=== PATIENT | male | born 1940 | race Caucasian/White ===

== ENCOUNTER → 2018-01-24 10:27 | Outpatient (CLI) | payer OTHER, SELFPAY ==
[2018-01-24 10:46] LABS: Add Manual Diff / Slide Review NO; Basophils Percent Auto 0.9 % (0-2); Eosinophils Percent Auto 4.3 % (2-4); Hematocrit 39.7 % (41-53); Hemoglobin 13.5 g/dL (13.5-17.5); Lymphocytes Percent Auto 22.9 % (25-40); Mean Corpuscular HGB Conc 34.1 % (30-36); Mean Corpuscular Hemoglobin 30.7 PG (26-34); Mean Corpuscular Volume 90.1 fL (80-100); Monocytes Percent Auto 6.7 % (3-14); Neutrophils Absolute Auto 6200 /uL (3000-5900); Neutrophils Percent Auto 65.2 % (50-75); Platelet Count 234 X10^3/uL (150-400); Red Cell Distribution Width 13.7 % (11.6-14.8); White Blood Cell Count 9.4 X10^3/uL (4.5-11.0)
[2018-01-24 11:05] LABS: Alanine Aminotransferase 21 IU/L (21-72); Albumin 3.9 g/dL (3.5-5.0); Albumin Globulin Ratio 1.5 (1.0-2.8); Alkaline Phosphatase 76 U/L (38-126); Aspartate Aminotransferase 26 IU/L (17-59); Bilirubin Total 0.5 mg/dL (0.2-1.3); Estimated Glomerular Filt Rate 45.5 mL/min (>60); Globulin 2.6 g/dL (1.7-4.1); Glucose 102 mg/dL (80-110); HEMOLYSIS < 15 (0-50); Potassium 4.8 mmol/L (3.4-5.1); Sodium 142 mmol/L (137-145); Total Protein 6.5 g/dL (6.3-8.2)
== END ==
PROVIDERS: Family Provider Internal Medicine; PCP Internal Medicine; Visit Provider Nurse Practitioner Gerontology
DX: C64.9 Malignant neoplasm of unspecified kidney, except renal pelvis (principal)
CPT/HCPCS: 80053; 85025

== ENCOUNTER → 2018-02-13 10:34 | Outpatient (CLI) | payer OTHER, SELFPAY ==
--- NOTE | 2018-02-13 10:36 | DI.US.S_ITS ---
PROCEDURE: US RENAL COMPLETE INDICATIONS: HISTORY RENAL CELL CANCER/RENAL MASS TECHNIQUE: Real-time scanning was performed of the kidneys and bladder, with image documentation. COMPARISON: [facility], CT, ABDOMEN W&WO CONTRAST, 03/13/2017, 8:05. [facility], CT, CHEST/ABD/PEL WITH CONTRAST, 12/14/2017, 11:12. FINDINGS: Kidneys: Kidneys are normal in size. Right kidney measures 12.7 cm long; left kidney is surgically absent. Right renal cortical thickness is 2.3 cm. Renal cortical echotexture is normal. No hydronephrosis or nephrolithiasis. No suspicious solid mass lesions. The several renal cortical cysts are present, simple in character, measuring up to 1.3 cm at the anterior cortex at 3.2 cm superior cortex seen on CT scanning Bladder: Pre-void bladder volume is 187 mL. Post-void residual is 0 mL. Pre-void images demonstrate no intraluminal masses or stones. On pre-void images, right but not the left ureteral jets are noted with color Doppler interrogation. (Of note, ureteral jets may not be detectable in up to 25% of cases due to insufficient differences in specific gravity between ureteral and bladder urine). Miscellaneous: No free pelvic fluid. IMPRESSION: Prior left nephrectomy, several scattered renal cortical cysts are seen on the right. No solid right-sided renal cortical mass is present. There is a hyperdense cyst at the posterior border of the right kidney cortex, located at approximately the junction of the middle and upper thirds, that has sonographic appearance of a cyst and therefore is consistent with a proteinaceous content within. Dictated by: Kingsley Teran M.D. on 02/13/2018 at 12:47 Approved by: Kingsley Teran M.D. on 02/13/2018 at 12:51
== END ==
PROVIDERS: Family Provider Internal Medicine; PCP Internal Medicine; Visit Provider Nurse Practitioner Gerontology
DX: N28.1 Cyst of kidney, acquired (principal); Z85.528 Personal history of other malignant neoplasm of kidney
CPT/HCPCS: 76770

== ENCOUNTER → 2018-04-07 12:24 | Outpatient (CLI) | payer OTHER, SELFPAY ==
[2018-04-07 13:28] LABS: Alanine Aminotransferase 21 IU/L (21-72); Albumin 3.9 g/dL (3.5-5.0); Albumin Globulin Ratio 1.6 (1.0-2.8); Alkaline Phosphatase 77 U/L (38-126); Aspartate Aminotransferase 27 IU/L (17-59); BUN Creatinine Ratio 13.8 (6-22); Bilirubin Total 0.5 mg/dL (0.2-1.3); Blood Urea Nitrogen 18 mg/dL (9-20); Calcium 9.1 mg/dL (8.4-10.2); Carbon Dioxide 24 mmol/L (22-32); Chloride 106 mmol/L (98-107); Estimated Glomerular Filt Rate 53.7 mL/min (>60); Globulin 2.4 g/dL (1.7-4.1); Glucose 96 mg/dL (80-110); HEMOLYSIS < 15 (0-50); Potassium 4.6 mmol/L (3.4-5.1); Sodium 139 mmol/L (137-145); Total Protein 6.3 g/dL (6.3-8.2)
[2018-04-07 13:59] LABS: Prostate Specific Antigen 0.584 ng/mL (0.10-4.00)
== END ==
PROVIDERS: Family Provider Internal Medicine; PCP Internal Medicine; Visit Provider Internal Medicine
DX: N40.1 Benign prostatic hyperplasia with lower urinary tract symptoms (principal); Z85.528 Personal history of other malignant neoplasm of kidney
CPT/HCPCS: 36415; 80053; 84153

== ENCOUNTER → 2018-04-10 10:52 | Outpatient (CLI) | payer OTHER, SELFPAY ==
--- NOTE | 2018-04-10 | DI.CT.S_ITS ---
PROCEDURE: CT CHEST ABD PEL W CON INDICATIONS: HISTORY OF RENAL CELL CARCINOMA TECHNIQUE: After the administration of intravenous contrast, 5 mm thick sections acquired from the lung apices to the symphysis. 5 mm coronal and sagittal reformats were performed, with additional 7 mm MIP reformats through the lungs. For radiation dose reduction, the following was used: automated exposure control, adjustment of mA and/or kV according to patient size. COMPARISON: Outside Facility, , CT ABDOMEN/PELVIS WITH CONTRAST, 11/15/2016, 13:56. [facility], CT, ABDOMEN W&WO CONTRAST, 03/13/2017, 8:05. [facility], CT, CHEST/ABD/PEL WITH CONTRAST, 07/19/2017, 9:34. [facility], US, US RENAL COMPLETE, 02/13/2018, 10:58. [facility], CT, CHEST/ABD/PEL WITH CONTRAST, 12/14/2017, 11:12. FINDINGS: Image quality: Excellent. CHEST: Lungs and pleura: No acute airspace opacities except for atelectatic changes. No pleural effusions or pneumothorax. Central and peripheral airways appear patent and normal in caliber. Mediastinum: Heart size is normal. Coronary artery calcifications. No pericardial effusion. No mediastinal or hilar adenopathy by size criteria. Thoracic aorta is aneurysmal in the ascending segment which measures 4.4 cm AP. The central pulmonary arteries are normal in size. Esophagus is normal in caliber. No hiatal hernia. Chest wall: No axillary or supraclavicular adenopathy by size criteria. Thyroid gland appears normal. ABDOMEN: Solid organs: Liver is normal in size and enhancement. Numerous hepatic cysts appear stable. Gallbladder shows no calcified stones. Biliary system is non dilated. Pancreas enhances normally. Spleen is normal in size and enhancement. No adrenal nodules. The left kidney is surgically absent. The right kidney again contains a 1.4 cm exophytic hyperdense cyst over the lateral mid pole. Additional simple renal cysts appear stable. A 4 mm calcification in the posterior lower pole and a 6 mm calcification in the anterior lower pole appear slightly larger. Peritoneum and bowel: Bowel loops demonstrate normal wall thickness and caliber. No free fluid or air. Nodes and vessels: No retroperitoneal or mesenteric adenopathy by size criteria. Aorta and inferior vena cava are normal in size. Miscellaneous: No ventral hernias. PELVIS: Genitourinary: Bladder wall thickness is mildly increased. Prostate is mildly enlarged and lobulated. Seminal vesicles are partially calcified. Miscellaneous: No inguinal hernias or adenopathy. Bones: No suspicious bony lesions. Multi-level degenerative disc disease. Sclerotic endplates L2-3 and L5-S1. No vertebral body compression fractures. IMPRESSION: 1. Status post left nephrectomy with no focal recurrence for adenopathy. 2. Multiple hepatic cysts appear stable. 3. Multiple right renal cysts including hyperdense cyst remain stable. Right nephrolithiasis. 4. Aneurysmal ascending aorta. Atherosclerosis. Dictated by: Michele Pina M.D. on 04/10/2018 at 12:47 Approved by: Michele Pina M.D. on 04/10/2018 at 13:05
== END ==
PROVIDERS: Family Provider Internal Medicine; PCP Internal Medicine; Visit Provider Urology
DX: N28.1 Cyst of kidney, acquired (principal); N20.0 Calculus of kidney; K76.89 Other specified diseases of liver; I71.2 Thoracic aortic aneurysm, without rupture; I70.90 Unspecified atherosclerosis; Z85.528 Personal history of other malignant neoplasm of kidney; Z90.5 Acquired absence of kidney
CPT/HCPCS: 71260; 74177; Q9967

== ENCOUNTER 2018-05-10 10:00 | Oncology outpatient (ONC) | payer OTHER, SELFPAY ==
[2018-01-31 15:36] VITALS: BP 150/88; PULSE 58; RESP 58; TEMP 36.2; O2SAT 18
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
[2018-05-10 10:14] VITALS: BP 135/79; PULSE 60; RESP 18; TEMP 36.8; O2SAT 98
[2018-05-10 10:19] LABS: Add Manual Diff / Slide Review NO; Basophils Percent Auto 0.8 % (0-2); Eosinophils Percent Auto 5.5 % (2-4); Hematocrit 41.2 % (41-53); Hemoglobin 13.7 g/dL (13.5-17.5); Mean Corpuscular HGB Conc 33.3 % (30-36); Mean Corpuscular Hemoglobin 30.9 PG (26-34); Monocytes Percent Auto 8.2 % (3-14); Neutrophils Absolute Auto 5300 /uL (3000-5900); Neutrophils Percent Auto 61.5 % (50-75); Platelet Count 245 X10^3/uL (150-400); Red Blood Cell Count 4.43 X10^6/uL (4.5-5.9); Red Cell Distribution Width 14.1 % (11.6-14.8); White Blood Cell Count 8.6 X10^3/uL (4.5-11.0)
[2018-05-10 10:25] LABS: Alanine Aminotransferase 19 IU/L (21-72); Albumin 3.9 g/dL (3.5-5.0); Albumin Globulin Ratio 1.5 (1.0-2.8); Alkaline Phosphatase 82 U/L (38-126); Aspartate Aminotransferase 23 IU/L (17-59); BUN Creatinine Ratio 12.9 (6-22); Bilirubin Total 0.5 mg/dL (0.2-1.3); Blood Urea Nitrogen 18 mg/dL (9-20); Calcium 8.9 mg/dL (8.4-10.2); Carbon Dioxide 27 mmol/L (22-32); Chloride 108 mmol/L (98-107); Estimated Glomerular Filt Rate 49.3 mL/min (>60); Globulin 2.6 g/dL (1.7-4.1); Glucose 110 mg/dL (80-110); HEMOLYSIS 20 (0-50); Potassium 5.2 mmol/L (3.4-5.1); Sodium 145 mmol/L (137-145); Total Protein 6.5 g/dL (6.3-8.2)
== END 2018-05-22 14:46 ==
PROVIDERS: Family Provider Internal Medicine; PCP Internal Medicine; Visit Provider Nurse Practitioner Gerontology
DX: C64.9 Malignant neoplasm of unspecified kidney, except renal pelvis (principal)
CPT/HCPCS: 36415; 80053; 85025; 99214

== ENCOUNTER → 2018-08-31 11:08 | Outpatient (CLI) | payer OTHER, SELFPAY ==
[2018-08-31 11:41] LABS: Add Manual Diff / Slide Review NO; Basophils Percent Auto 1.3 % (0-2); Eosinophils Percent Auto 5.2 % (2-4); Hematocrit 41.4 % (41-53); Hemoglobin 14.2 g/dL (13.5-17.5); Lymphocytes Percent Auto 28.1 % (25-40); Mean Corpuscular HGB Conc 34.3 % (30-36); Mean Corpuscular Hemoglobin 30.9 PG (26-34); Monocytes Percent Auto 7.4 % (3-14); Neutrophils Absolute Auto 4000 /uL (1500-7000); Platelet Count 245 X10^3/uL (150-400); Red Cell Distribution Width 14.1 % (11.6-14.8)
[2018-08-31 12:03] LABS: Alanine Aminotransferase 22 IU/L (21-72); Albumin 4.1 g/dL (3.5-5.0); Albumin Globulin Ratio 1.5 (1.0-2.8); Alkaline Phosphatase 72 U/L (38-126); Aspartate Aminotransferase 29 IU/L (17-59); BUN Creatinine Ratio 12.7 (6-22); Bilirubin Total 0.4 mg/dL (0.2-1.3); Blood Urea Nitrogen 19 mg/dL (9-20); Calcium 9.3 mg/dL (8.4-10.2); Carbon Dioxide 23 mmol/L (22-32); Chloride 107 mmol/L (98-107); Estimated Glomerular Filt Rate 45.4 mL/min (>60); Globulin 2.8 g/dL (1.7-4.1); Glucose 108 mg/dL (80-110); HEMOLYSIS 15 (0-50); Potassium 4.5 mmol/L (3.4-5.1); Sodium 142 mmol/L (137-145); Total Protein 6.9 g/dL (6.3-8.2)
--- NOTE | 2018-08-31 16:05 | PC.NURSE ---
labs stable, provider visit 3
== END ==
PROVIDERS: Family Provider Internal Medicine; PCP Internal Medicine; Visit Provider Nurse Practitioner Gerontology
DX: C64.9 Malignant neoplasm of unspecified kidney, except renal pelvis (principal)
CPT/HCPCS: 36415; 80053; 85025

== ENCOUNTER → 2018-09-03 10:37 | Outpatient (CLI) | payer OTHER, SELFPAY ==
--- NOTE | 2018-09-03 | DI.CT.S_ITS ---
PROCEDURE: CT CHEST ABD PEL W CON INDICATIONS: HISTORY OF RENAL CELL CARCINOMA TECHNIQUE: After the administration of oral and intravenous contrast, 5 mm thick sections acquired from the lung apices to the symphysis. 5 mm coronal and sagittal reformats were performed, with additional 7 mm coronal MIP reformats through the lungs. For radiation dose reduction, the following was used: automated exposure control, adjustment of mA and/or kV according to patient size. COMPARISON: [facility], CT, CT CHEST ABD PEL W CON, 04/10/2018, 11:51. FINDINGS: Image quality: Excellent. CHEST: Lungs and pleura: No acute airspace opacities. No pleural effusions or pneumothorax. Central and peripheral airways appear patent and normal in caliber. Mediastinum: Heart size is mildly enlarged. No pericardial effusion. No mediastinal or hilar adenopathy by size criteria. Ascending thoracic aortic aneurysm is again seen and measures up to 4.0 cm in largest AP diameter unchanged from previous study. Coronary calcifications are again seen. Esophagus is normal in caliber. There is a small height hernia. Chest wall: No axillary or supraclavicular adenopathy by size criteria. Thyroid gland is within normal limits. ABDOMEN: Solid organs: Liver is normal in size and enhancement. Numerous hepatic cysts are again seen and are unchanged in size and numbers. Gallbladder is within normal limits. Biliary system is non dilated. Pancreas enhances normally. Spleen is normal in size and enhancement. No adrenal nodules. Left kidney is surgically absent. Right kidney again contains 1.4 cm exophytic hyperdense cyst over lateral aspect of lower pole, unchanged in size and appearance from previous study. Additional simple appearing right renal cysts are again seen. Nonobstructing right renal calculi are again seen and unchanged. No hydronephrosis. No perinephric fluid collection. Peritoneum and bowel: Bowel loops demonstrate normal wall thickness and caliber. No free fluid or air. Sigmoid diverticulosis is seen, and no Nodes and vessels: No retroperitoneal or mesenteric adenopathy by size criteria. Aorta and inferior vena cava are normal in size. Miscellaneous: No ventral hernias. PELVIS: Genitourinary: Bladder wall thickness is normal. Miscellaneous: No inguinal hernias or adenopathy. Bones: No suspicious bony lesions. No vertebral body compression fractures. Degenerative disc disease through all thoracic and lumbar spine is seen. IMPRESSION: 1. No significant changes from previous study. Prior left nephrectomy with no evidence of local recurrence. 2. No adenopathy is seen in chest, abdomen or pelvis. 3. Bilateral lungs are clear. 4. Multiple hepatic cysts appear stable. Stable right renal cysts including hyperdense cyst in lower pole. Right nephrolithiasis. 5. Stable aneurysmal dilatation of ascending thoracic aorta. Dictated by: Humberto Garcia M.D. on 09/03/2018 at 14:05 Approved by: Humberto Garcia M.D. on 09/03/2018 at 15:13
== END ==
PROVIDERS: Family Provider Internal Medicine; PCP Internal Medicine; Referring Provider Nurse Practitioner Gerontology; Visit Provider Urology
DX: K76.89 Other specified diseases of liver (principal); N28.1 Cyst of kidney, acquired; N20.0 Calculus of kidney; I71.2 Thoracic aortic aneurysm, without rupture; Z85.528 Personal history of other malignant neoplasm of kidney
CPT/HCPCS: 71260; 74177; Q9967

== ENCOUNTER → 2018-12-14 11:19 | Outpatient (CLI) | payer OTHER, SELFPAY ==
[2018-12-14 11:51] LABS: Alanine Aminotransferase 22 IU/L (21-72); Albumin 4.2 g/dL (3.5-5.0); Albumin Globulin Ratio 1.6 (1.0-2.8); Alkaline Phosphatase 76 U/L (38-126); Aspartate Aminotransferase 27 IU/L (17-59); BUN Creatinine Ratio 14.6 (6-22); Bilirubin Total 0.4 mg/dL (0.2-1.3); Blood Urea Nitrogen 19 mg/dL (9-20); Calcium 9.2 mg/dL (8.4-10.2); Carbon Dioxide 25 mmol/L (22-32); Chloride 103 mmol/L (98-107); Estimated Glomerular Filt Rate 53.5 mL/min (>60); Globulin 2.6 g/dL (1.7-4.1); Glucose 95 mg/dL (80-110); HEMOLYSIS 15 (0-50); Potassium 4.7 mmol/L (3.4-5.1); Sodium 138 mmol/L (137-145); Total Protein 6.8 g/dL (6.3-8.2)
== END ==
PROVIDERS: Family Provider Internal Medicine; PCP Internal Medicine; Visit Provider Urology
DX: Z85.528 Personal history of other malignant neoplasm of kidney (principal)
CPT/HCPCS: 36415; 80053

== ENCOUNTER → 2018-12-17 09:53 | Outpatient (CLI) | payer OTHER, SELFPAY ==
--- NOTE | 2018-12-17 | DI.CT.S_ITS ---
PROCEDURE: CT CHEST ABD PEL W CON INDICATIONS: HISTORY OF RENAL CELL CARCINOMA/RENAL CYST TECHNIQUE: After the administration of oral and intravenous contrast, 5 mm thick sections acquired from the lung apices to the symphysis. 5 mm coronal and sagittal reformats were performed, with additional 7 mm coronal MIP reformats through the lungs. For radiation dose reduction, the following was used: automated exposure control, adjustment of mA and/or kV according to patient size. COMPARISON: [facility], CT, CT CHEST ABD PEL W CON, 09/03/2018, 11:18. FINDINGS: Image quality: Excellent. CHEST: Lungs and pleura: No acute airspace opacities. No pleural effusions or pneumothorax. Central and peripheral airways appear patent and normal in caliber. Mediastinum: Heart size is normal. Mild coronary artery calcification. No pericardial effusion. No mediastinal or hilar adenopathy by size criteria. Thoracic aorta measures 4.4 cm in AP diameter, mildly increased compared to the prior study. The pulmonary arteries are normal. Esophagus is normal in caliber. No hiatal hernia. Chest wall: No axillary or supraclavicular adenopathy by size criteria. Thyroid gland is normal. ABDOMEN: Solid organs: Liver is normal in size and enhancement. Innumerable cystic structures throughout the liver ranging in size from subcentimeter, to 5.9 cm. No new enhancing liver lesions. Gallbladder is decompressed, without stones. Biliary system is non dilated. Pancreas enhances normally. Spleen is normal in size and enhancement. No adrenal nodules. The left kidney is surgically absent. No residual or recurrent tissue in the left nephrectomy bed. Stable splenule medial and superior to the spleen. No retroperitoneal lymphadenopathy. The right kidney contains multiple small exophytic simple and hyperdense cysts. No hydronephrosis or nephrolithiasis. Peritoneum and bowel: Bowel loops demonstrate normal wall thickness and caliber. Sigmoid diverticulosis. Normal appendix. No free fluid or air. Nodes and vessels: No retroperitoneal or mesenteric adenopathy by size criteria. Aorta and inferior vena cava are normal in size. Miscellaneous: No ventral hernias. PELVIS: Genitourinary: Bladder wall thickness is normal. Prostate gland size at the upper limits of normal. Miscellaneous: No inguinal hernias or adenopathy. Bones: No suspicious bony lesions. Degenerative disc, endplate, and facet disease throughout the spine. No vertebral body compression fractures. IMPRESSION: 1. Post left nephrectomy without evidence of local residual or recurrent disease. 2. Stable hepatic cysts. 3. No evidence of metastatic disease in the chest, abdomen, pelvis, or osseous structures. 4. Slight increase in size of ascending thoracic aorta, now measuring 4.4 cm in AP diameter. Dictated by: Melissa Simpson M.D. on 12/17/2018 at 12:45 Approved by: Melissa Simpson M.D. on 12/17/2018 at 13:02
== END ==
PROVIDERS: Family Provider Internal Medicine; PCP Internal Medicine; Visit Provider Urology
DX: N28.1 Cyst of kidney, acquired (principal); K76.89 Other specified diseases of liver; I77.89 Other specified disorders of arteries and arterioles; Z85.528 Personal history of other malignant neoplasm of kidney
CPT/HCPCS: 71260; 74177; Q9967

== ENCOUNTER → 2019-07-25 10:45 | Outpatient (CLI) | payer OTHER, SELFPAY ==
--- NOTE | 2019-07-25 11:23 | DI.CT.S_ITS ---
PROCEDURE: CT CHEST ABD PEL W CON INDICATIONS: renal cell carcinoma TECHNIQUE: After the administration of oral and intravenous contrast, 5 mm thick sections acquired from the lung apices to the symphysis. 5 mm coronal and sagittal reformats were performed, with additional 7 mm coronal MIP reformats through the lungs. For radiation dose reduction, the following was used: automated exposure control, adjustment of mA and/or kV according to patient size. COMPARISON: [facility], CT, CHEST/ABD/PEL WITH CONTRAST, 12/14/2017, 11:12. [facility], CT, ABDOMEN W&WO CONTRAST, 03/13/2017, 8:05. [facility], CT, CT CHEST ABD PEL W CON, 12/17/2018, 10:57. [facility], CT, CT CHEST ABD PEL W CON, 09/03/2018, 11:18. FINDINGS: Image quality: Excellent. CHEST: Lungs and pleura: No acute airspace opacities. No pleural effusions or pneumothorax. Central and peripheral airways appear patent and normal in caliber. Mediastinum: Heart size is normal. No pericardial effusion. No mediastinal or hilar adenopathy by size criteria. Thoracic aorta and central pulmonary arteries are normal in size. Esophagus is normal in caliber. No hiatal hernia. Chest wall: No axillary or supraclavicular adenopathy by size criteria. Thyroid gland normal where well seen. ABDOMEN: Solid organs: Liver is normal in size and enhancement. Multiple scattered hepatic cysts are again noted, water density. Gallbladder appears normal but partially contracted. Biliary system is non dilated. Pancreas enhances normally. Spleen is normal in size and enhancement. No adrenal nodules. The left kidney is surgically absent, the right kidney demonstrates normal size and enhancement, without hydronephrosis or solid masses. An exophytic hyperdense small right posterior renal cortical cyst has been chronically present.. Peritoneum and bowel: Bowel loops demonstrate normal wall thickness and caliber. No free fluid or air. Nodes and vessels: No retroperitoneal or mesenteric adenopathy by size criteria. Aorta and inferior vena cava are normal in size. Miscellaneous: No ventral hernias. PELVIS: Genitourinary: Bladder wall thickness is normal. Miscellaneous: No inguinal hernias or adenopathy. Bones: No suspicious bony lesions. No vertebral body compression fractures. IMPRESSION: No evidence of metastatic disease after left nephrectomy. Exophytic hyperdense cyst again noted posterior border of the right kidney. Scattered water density hepatic cysts are again seen. Dictated by: Kingsley Teran M.D. on 07/25/2019 at 13:30 Approved by: Kingsley Teran M.D. on 07/25/2019 at 13:34
== END ==
PROVIDERS: PCP Internal Medicine; Visit Provider Internal Medicine Hematology & Oncology
DX: C64.9 Malignant neoplasm of unspecified kidney, except renal pelvis (principal); K76.89 Other specified diseases of liver; Z90.5 Acquired absence of kidney
CPT/HCPCS: 71260; 74177; Q9967

== ENCOUNTER 2020-07-06 13:12 | Emergency (ER) | payer OTHER, SELFPAY ==
[2020-07-06 13:20] VITALS: BP 145/85; PULSE 71; RESP 20; TEMP 36.7; O2SAT 97
--- NOTE | 2020-07-06 14:46 | DI.US.S_ITS ---
PROCEDURE: US SCROTUM INDICATIONS: SWELLING, REDNESS, DRAINAGE. TECHNIQUE: Real-time scanning was performed of the scrotum and testicles, with image documentation. Color and pulse Doppler interrogation was performed of both testicles. COMPARISON: None. FINDINGS: Right: Testicle is normal in size at 3.0 x 3.0 x 4.9 cm, and homogenous in echotexture. Epididymis is normal in overall size and morphology. There is a small 4 x 6 x 6 mm peritesticular cyst on the right likely originating from the mid epididymis there is a moderately large right-sided hydrocele measuring up to 4.3 x 3.2 x 8.2 cm. varicoceles. Overlying scrotal skin is mildly increased in thickness and mildly hyperemic. Left: Testicle is normal in size at 3.2 x 3.0 x 4.8 cm, and homogeneous in echotexture. Epididymis is normal in overall size and morphology. There is a moderately large left-sided hydrocele measuring up to 2.9 x 5.3 x 8.0 cm. No varicoceles. Overlying scrotal skin is normal in thickness. Doppler: Color and pulse Doppler demonstrate normal and symmetric arterial flow in both testicles. IMPRESSION: Bilateral large hydroceles are present. No sign of testicular infection within, but there is asymmetric hyperemia involving the right scrotal wall, without abscess formation. Mild cellulitis is the likely cause. No suspicion for underlying malignancy within the testicular parenchyma, or infected hydroceles bilaterally. Dictated by: Kingsley Teran M.D. on 07/06/2020 at 16:54 Approved by: Kingsley Teran M.D. on 07/06/2020 at 17:00
--- NOTE | 2020-07-06 14:48 | ED.MALEGU ---
HPI - Male Genitourinary <MELIDA Pereira - Last Filed: 07/06/20 23:17> General Chief complaint: Urogenital-Male Stated complaint: infection on scrotum Time Seen by Provider: 07/06/20 14:21 Source: patient Mode of arrival: Ambulatory Limitations: no limitations History of Present Illness HPI Narrative: This is a 80-year-old female, nonsmoker, who has medical history significant for hypertension, tumor in kidney and has 1 functioning kidney, hyperlipidemia, back pain presents to ED with significant other with chief complain of scrotum pain, swelling and inflammation which started 4 days ago. Patient reports has been draining purulent discharge since yesterday. Patient denies fever, chills, nausea or vomiting. Patient denies previous history of similar symptoms. Patient denies dysuria or frequency more than his usual from old man's problem and reports clear clear urine. Related Data Previous Rx's Medication Instructions Recorded sildenafil [Viagra] 0 PO SEE INSTRUCTIONS #15 09/21/12 atenolol 50 mg PO QDAY #90 tab 04/25/19 celecoxib 200 mg capsule 200 mg PO DAILY #90 cap 08/22/19 nabumetone 750 mg tablet 750 mg PO BID #180 tab 12/25/19 omeprazole 40 mg capsule,delayed 40 mg PO QDAY #90 cap 02/25/20 release simvastatin 80 mg tablet 40 mg PO DAILY #45 tab 02/25/20 diazepam 5 mg tablet 5 mg PO Q6HP #120 tab 04/30/20 hydrocodone 7.5 mg-acetaminophen 1 - 2 tab PO Q6H PRN #180 tab 07/03/20 325 mg tablet sulfamethoxazole 800 1 tab PO BID 7 Days #14 tab 07/13/20 mg-trimethoprim 160 mg tablet Allergies Allergy/AdvReac Type Severity Reaction Status Date / Time No Known Drug Allergies Allergy Unknown Verified 07/03/20 13:33 [NO KNOWN DRUG ALLERGIES] Review of Systems <MELIDA Pereira - Last Filed: 07/06/20 23:17> Review of Systems Narrative: General: Denies fever, chills, fatigue, malaise, sweats. HEENT: Denies sinus pain, ear pain, sore throat, difficulty swallowing, dizziness. Respiratory: Denies dyspnea, cough, wheezing, hemoptysis, sputum. Cardiovascular: Denies chest pain, palpitations, orthopnea, edema. Gastrointestinal: Denies nausea, vomiting, abdominal pain, diarrhea, constipation, melena. : See HPI Musculoskeletal: Denies weakness, joint pain or bony pain. Skin: Denies rash, skin lesions, or other. Neurologic: Denies weakness, headache, numbness, change in speech, confusion, seizures, incoordination. Psychiatric: No concerning psychosocial issues. 12-point review of systems is negative except for those stated above. 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) Essential hypertension (Chronic) H/O migraine (Chronic) Liver cyst (Chronic 08/21/17) Mixed hyperlipidemia (Chronic) Osteoarthritis (Chronic) Renal cell carcinoma (Chronic 04/18/17) Renal cyst (Chronic 08/21/17) Right hydrocele (Chronic 03/01/16) Surgical History History of nephrectomy (05/05/17) Social History marital status: number of children: 2 household members: spouse lives independently: Yes caregiver/support person: No housing: house pets and animals: No education level: college (3 years) occupational status: other (Retired) Previous occupational history: [employer]. [employer]. anabel/confucianism: None travel history: recent ([place]) and over 6 months ago ([place]) leisure activities: fishing, reading and other (Boat work) Smoking Status: Never smoker Tobacco: How many years used: 0 quit status: quit date established (Never Started) second hand exposure: No alcohol intake: current (Rarely) substance use type: does not use Smoking Status: Never smoker Exam <MELIDA Pereira - Last Filed: 07/06/20 23:17> Narrative Exam Narrative: GEN: Alert, oriented x 3, well appearing and nourished, and in no acute distress. Head: Normal cephalic, atraumatic. No scalp or temporal tenderness, palpable mass or rash. EYES: Pupils are equal, round, and reactive to light and accommodation. Extraocular muscles are intact bilaterally. There is no subconjunctival hemorrhage, exudate and sclera non-icteric. ENT: Hearing grossly intact. Nose without bleeding, purulent discharge or deviation. Facial sinuses nontender to palpate. Mucous membrane moist, no mucosal lesion. Throat without erythema, tonsillar hypertrophy or exudate. Uvula in midline, airway patent. Neck: Trachea in midline. No JVD, non-tender without lymphadenopathy. No masses or thyroid megaly. Supple, non-tender and no meningeal signs. CARDIAC: Normal regular rate and rhythm without murmurs, gallops, or rubs. No chest wall tenderness. No peripheral edema, cyanosis or pallor. Capillary refill is less than 2 seconds. RESPIRATORY: Lungs are clear to auscultate bilaterally. No cough, wheezes, rales, or rhonchi. No stridor, respiratory distress, increase work of breathing, or accessary muscle used. ABD: Abdomen soft, nontender and non-distended. No guarding or rebound tenderness to palpate. Bowel sounds are normal in all 4 quadrants. There is no palpable masses or organomegaly. EXT: Full painless ROM of all extremities with no loss of sensation, strength, effusion or edema. SKIN: Warm, dry, normal color for patient. No erythema, lesions or rash over visible areas. BACK: Nontender without deformity or crepitance. No flank tenderness. NEUROLOGICAL: Alert and oriented to place, time and person. Sensation and motor function intact bilaterally. No facial droops, dysphasia. PSYCHIATRIC: Good judgement and reason, without hallucinations, abnormal affect or abnormal behaviors during the examination. Patient is not suicidal. Initial Vital Signs Initial Vital Signs: Vital Signs Temperature 98.0 F 07/06/20 13:20 Pulse Rate 71 07/06/20 13:20 Respiratory Rate 20 07/06/20 13:20 Blood Pressure 145/85 H 07/06/20 13:20 Pulse Oximetry 97 07/06/20 13:20 General: No CVA tenderness External: edema, erythema, scrotal swelling and tenderness Penis: normal penis Scrotum: no ecchymosis, edematous, erythematous, scrotal swelling and other (Thick purulent discharge on external scrotum) Testes: enlarged, testicular swelling and testicular tenderness <Estela Wild DO - Last Filed: 07/15/20 07:19> Initial Vital Signs Initial Vital Signs: Vital Signs Temperature 98.0 F 07/06/20 13:20 Pulse Rate 71 07/06/20 13:20 Respiratory Rate 20 07/06/20 13:20 Blood Pressure 145/85 H 07/06/20 13:20 Pulse Oximetry 97 07/06/20 13:20 Scores <[facility] - Last Filed: 07/06/20 23:17> GCS Danelle coma scale eye opening: Spontaneous [place] coma scale verbal response: Orientated Danelle coma scale motor response: Obey commands [place] coma scale total score: 15 qSOFA Altered Mental Status (GCS <15): No Respiratory rate greater than/equal to 22: No Systolic blood pressure less than or equal to 100: No qSOFA Total: 0 0-1 Not High Risk 1-3 High risk Course <[facility] - Last Filed: 07/06/20 23:17> Orders Ordered: Discontinued Medications Trimethoprim/Sulfamethoxazole (Bactrim Ds) 1 tab PO NOW ONE Stop: 07/06/20 17:31 Last Admin: 07/06/20 17:34 Dose: 1 tab Documented by: SOPHIA Consultations Consultation #1: Spoke with Dr. Chau on the phone and discussed physical findings, lab tests and ultrasound findings. She recommended startin patient on Septra DS and to have him call the office to follow-up. Time: 17:43 Vital Signs Vital signs: Vital Signs - 8 hr 07/06/20 17:30 Pulse Rate 64 Respiratory Rate 16 Blood Pressure 132/81 Pulse Oximetry 95 <Estela Wild DO - Last Filed: 07/15/20 07:19> Orders Ordered: Discontinued Medications Trimethoprim/Sulfamethoxazole (Bactrim Ds) 1 tab PO NOW ONE Stop: 07/06/20 17:31 Last Admin: 07/06/20 17:34 Dose: 1 tab Documented by: SOPHIA Vital Signs Vital signs: Vital Signs - 8 hr 07/06/20 17:30 Pulse Rate 64 Respiratory Rate 16 Blood Pressure 132/81 Pulse Oximetry 95 MDM - Male Genitourinary <Sree FergusonMELIDA - Last Filed: 07/06/20 23:17> Differential Diagnosis Differential diagnosis: Likely urinary tract infection, epididymitis, prostatitis and other (hydrocele, scrotal infection, ) Medical Records Attestation: I reviewed the patient's medical records. Lab Data Attestation: I reviewed the patient's lab results. Result diagrams: 07/06/20 16:03 07/06/20 16:03 Labs: Lab Results 07/06/20 07/06/20 07/06/20 Range/Units 16:03 16:03 16:03 WBC 10.3 (4.5-11.0) X10^3/uL RBC 4.41 L (4.5-5.9) X10^6/uL Hgb 13.8 (13.5-17.5) g/dL Hct 41.4 (41-53) % MCV 93.9 (80-100) fL MCH 31.3 (26-34) PG MCHC 33.4 (30-36) % RDW 13.5 (11.6-14.8) % Plt Count 248 (150-400) X10^3/uL Neut % (Auto) 68.9 (50-75) % Lymph % (Auto) 19.9 L (25-40) % Bladen % (Auto) 6.4 (3-14) % Eos % (Auto) 3.8 (2-4) % Baso % (Auto) 1.0 (0-2) % Neut # (Auto) 7100 H (6224-2904) /uL Lymph # (Auto) 2000 (5936-4969) /uL Bladen # (Auto) 700 (0-900) /uL Eos # (Auto) 400 (0-450) /uL Baso # (Auto) 100 (0-100) /uL Sodium 141 (137-145) mmol/L Potassium 5.0 (3.4-5.1) mmol/L Chloride 108 H (98-107) mmol/L Carbon Dioxide 29 (22-32) mmol/L BUN 16 (9-20) mg/dL Creatinine 1.36 H (0.66-1.25) mg/dL Estimated GFR 50.5 L (>60) mL/min BUN/Creatinine Ratio 11.8 (6-22) Glucose 103 (80-110) mg/dL Lactate (0.7-2.1) mmol/L Calcium 9.3 (8.4-10.2) mg/dL Total Bilirubin 0.6 (0.2-1.3) mg/dL AST 40 (17-59) IU/L ALT 30 (<50) IU/L Alkaline Phosphatase 108 (38-126) U/L Total Protein 7.3 (6.3-8.2) g/dL Albumin 4.0 (3.5-5.0) g/dL Globulin 3.3 (1.7-4.1) g/dL Albumin/Globulin Ratio 1.2 (1.0-2.8) Procalcitonin < 0.05 (<0.5) ng/mL 07/06/20 Range/Units 16:03 WBC (4.5-11.0) X10^3/uL RBC (4.5-5.9) X10^6/uL Hgb (13.5-17.5) g/dL Hct (41-53) % MCV (80-100) fL MCH (26-34) PG MCHC (30-36) % RDW (11.6-14.8) % Plt Count (150-400) X10^3/uL Neut % (Auto) (50-75) % Lymph % (Auto) (25-40) % Bladen % (Auto) (3-14) % Eos % (Auto) (2-4) % Baso % (Auto) (0-2) % Neut # (Auto) (4646-4136) /uL Lymph # (Auto) (4827-0228) /uL Bladen # (Auto) (0-900) /uL Eos # (Auto) (0-450) /uL Baso # (Auto) (0-100) /uL Sodium (137-145) mmol/L Potassium (3.4-5.1) mmol/L Chloride (98-107) mmol/L Carbon Dioxide (22-32) mmol/L BUN (9-20) mg/dL Creatinine (0.66-1.25) mg/dL Estimated GFR (>60) mL/min BUN/Creatinine Ratio (6-22) Glucose (80-110) mg/dL Lactate 0.9 (0.7-2.1) mmol/L Calcium (8.4-10.2) mg/dL Total Bilirubin (0.2-1.3) mg/dL AST (17-59) IU/L ALT (<50) IU/L Alkaline Phosphatase (38-126) U/L Total Protein (6.3-8.2) g/dL Albumin (3.5-5.0) g/dL Globulin (1.7-4.1) g/dL Albumin/Globulin Ratio (1.0-2.8) Procalcitonin (<0.5) ng/mL Urine Dip Bedside Urine Glucose Negative Bedside Urine Bilirubin - Negative Bedside Urine Ketone - Negative Urine Specific [place] 1.015 Bedside Urine Occult Blood - Negative Bedside Urine pH 6.0 Bedside Urine Protein - Negative Bedside Urine Urobilinogen - Negative Bedside Urine Nitrite - Negative Bedside Urine Leukocytes - Negative Esterase Imaging Data US Scrotum: Radiologist's Impression: [address] [address] XRay Report Signed Patient: Maria R Galvez [facility]#: [id number] : 03/31/1975Acct:[id number] Age/Sex: 45 / FDate of Service: 07/06/20 Loc: ED Accession Number: [id number] Procedure: XR wrist LT min 3V Ordering Provider: Estela Wild D.O. PROCEDURE: XR WRIST LT MIN 3V INDICATIONS: fall, left hand /wrist pain w/ deformed 5th finger w/ lac TECHNIQUE: 4 views of the wrist were acquired. COMPARISON: None. FINDINGS: Bones: No fractures or dislocations. No suspicious bony lesions. Small chronic calcification projects adjacent to the distal tip of the ulnar styloid. Scaphoid view: Scaphoid appears intact. Scapholunate interval is maintained. Soft tissues: No suspicious soft tissue calcifications. IMPRESSION: Left wrist without acute fracture or dislocation. If there is persistent clinical concern for occult fracture given adequate mechanism of injury, consider repeat imaging in 10-14 days. Dictated by: Gadiel Jorgensen M.D. on 07/06/2020 at 12:27 Approved by: Gadiel Jorgensen M.D. on 07/06/2020 at 12:29 [facility] Narrative Medical decision making narrative: This is a 80-year-old pleasant male presents to ED with scrotal swelling, redness, mild warmth with scant amount of thick purulent discharge. It was unable to locate where the drain is is coming from. Patient reports pain increases with certain movements and rubbing on the scrotum. Patient does not endorse constitutional symptoms. Urine test does not indicate bladder infection. No leukocytosis. Negative for lactate or procalcitonin elevation. Mildly decreased kidney function test with creatinine level of 1.36 and estimated GFR of 50.5 with normal BUN. When it was compared, patient's kidney function is at his baseline. US on scrotum obtained and indicates normal bilateral testicular size with homogeneous echotexture. Normal epididymitis. Bilateral moderately large hydrocele left-sided measuring up to 2.9 x 5.3 x 8.0 cm and right side upto 4.3 x 3.2x 8.2 cm. Right side scrotal skin is mildly increased in thickness and hyper image indicating cellulitis. There is no signs of testicular infection without abscess formation. Dr. Lee consulted and recommended to start Septra DS and to follow-up at the clinic. Findings were discussed with patient and spouse and patient was medicated with 1st dose of Septra DS in ED and discharged to home with b.i.d. course for 7 days. Return precautions were discussed with patient and he verbalized understanding and agreement with the treatment plan. <Estela Wild, DO - Last Filed: 07/15/20 07:19> Lab Data Labs: Lab Results 07/06/20 07/06/20 07/06/20 Range/Units 16:03 16:03 16:03 WBC 10.3 (4.5-11.0) X10^3/uL RBC 4.41 L (4.5-5.9) X10^6/uL Hgb 13.8 (13.5-17.5) g/dL Hct 41.4 (41-53) % MCV 93.9 (80-100) fL MCH 31.3 (26-34) PG MCHC 33.4 (30-36) % RDW 13.5 (11.6-14.8) % Plt Count 248 (150-400) X10^3/uL Neut % (Auto) 68.9 (50-75) % Lymph % (Auto) 19.9 L (25-40) % Bl[place] % (Auto) 6.4 (3-14) % Eos % (Auto) 3.8 (2-4) % Baso % (Auto) 1.0 (0-2) % Neut # (Auto) 7100 H (7091-3463) /uL Lymph # (Auto) 2000 (5701-9325) /uL [place] # (Auto) 700 (0-900) /uL Eos # (Auto) 400 (0-450) /uL Baso # (Auto) 100 (0-100) /uL Sodium 141 (137-145) mmol/L Potassium 5.0 (3.4-5.1) mmol/L Chloride 108 H (98-107) mmol/L Carbon Dioxide 29 (22-32) mmol/L BUN 16 (9-20) mg/dL Creatinine 1.36 H (0.66-1.25) mg/dL Estimated GFR 50.5 L (>60) mL/min BUN/Creatinine Ratio 11.8 (6-22) Glucose 103 (80-110) mg/dL Lactate (0.7-2.1) mmol/L Calcium 9.3 (8.4-10.2) mg/dL Total Bilirubin 0.6 (0.2-1.3) mg/dL AST 40 (17-59) IU/L ALT 30 (<50) IU/L Alkaline Phosphatase 108 (38-126) U/L Total Protein 7.3 (6.3-8.2) g/dL Albumin 4.0 (3.5-5.0) g/dL Globulin 3.3 (1.7-4.1) g/dL Albumin/Globulin Ratio 1.2 (1.0-2.8) Procalcitonin < 0.05 (<0.5) ng/mL 07/06/20 Range/Units 16:03 WBC (4.5-11.0) X10^3/uL RBC (4.5-5.9) X10^6/uL Hgb (13.5-17.5) g/dL Hct (41-53) % MCV (80-100) fL MCH (26-34) PG MCHC (30-36) % RDW (11.6-14.8) % Plt Count (150-400) X10^3/uL Neut % (Auto) (50-75) % Lymph % (Auto) (25-40) % [place] % (Auto) (3-14) % Eos % (Auto) (2-4) % Baso % (Auto) (0-2) % Neut # (Auto) (4802-6763) /uL Lymph # (Auto) (2258-2713) /uL Bladen # (Auto) (0-900) /uL Eos # (Auto) (0-450) /uL Baso # (Auto) (0-100) /uL Sodium (137-145) mmol/L Potassium (3.4-5.1) mmol/L Chloride (98-107) mmol/L Carbon Dioxide (22-32) mmol/L BUN (9-20) mg/dL Creatinine (0.66-1.25) mg/dL Estimated GFR (>60) mL/min BUN/Creatinine Ratio (6-22) Glucose (80-110) mg/dL Lactate 0.9 (0.7-2.1) mmol/L Calcium (8.4-10.2) mg/dL Total Bilirubin (0.2-1.3) mg/dL AST (17-59) IU/L ALT (<50) IU/L Alkaline Phosphatase (38-126) U/L Total Protein (6.3-8.2) g/dL Albumin (3.5-5.0) g/dL Globulin (1.7-4.1) g/dL Albumin/Globulin Ratio (1.0-2.8) Procalcitonin (<0.5) ng/mL Urine Dip Bedside Urine Glucose Negative Bedside Urine Bilirubin - Negative Bedside Urine Ketone - Negative Urine Specific [place] 1.015 Bedside Urine Occult Blood - Negative Bedside Urine pH 6.0 Bedside Urine Protein - Negative Bedside Urine Urobilinogen - Negative Bedside Urine Nitrite - Negative Bedside Urine Leukocytes - Negative Esterase Discharge Plan Departure Patient Disposition: Home Clinical Impression: Cellulitis, scrotum Hydrocele Qualifiers: Hydrocele type: unspecified Qualified Code(s): N43.3 - Hydrocele, unspecified Discharge Date/Time: 07/06/20 17:56 Instructions: DI for Cellulitis -- Adult, DI for Hydrocele-Adult Activity Restrictions/Additional Instructions: You have been diagnosed with [bilateral hydrocele and scortal cellulitis based on ultrasound test. Lab tests are assuring. No signs of UTI. I spoke with Dr. Hastings's associate Dr. Lee and she instructed to call the office tomorrow morning to follow-up the office.]. What to do: *Take your medications as directed. Please start Bactrim DS twice a day for next 7 days. First dose has been provided today in ED. you can take [id number] Tylenol and or Motrin as needed for discomfort. *Follow up with your Dr. Arriola office in 2-3 days, call for an appointment. Let them know you were seen in the ED and that we asked you to be seen in follow up. *Return to ED if you have any new, worsening, or concerning symptoms, such as [chest pain, breathing difficulty, unable to tolerate fluids, fever, worsening pain or any acute concerns]. Prescriptions: No Action sildenafil [Viagra] 100 MG tablet 0 PO SEE INSTRUCTIONS Qty: 15 RF: 11 atenolol 50 mg tablet 50 mg PO QDAY Qty: 90 RF: 3 nabumetone 750 mg tablet 750 mg PO BID Qty: 180 RF: 3 omeprazole 40 mg capsule,delayed release(DR/EC) 40 mg PO QDAY Qty: 90 RF: 3 simvastatin 80 mg tablet 40 mg PO DAILY Qty: 45 RF: 3 diazepam [Valium] 5 mg tablet 5 mg PO Q6HP Qty: 120 RF: 0 sulfamethoxazole-trimethoprim [Bactrim DS] 800-160 mg tablet 1 tab PO BID 7 Days Qty: 14 RF: 0 celecoxib 200 mg capsule 200 mg PO DAILY Qty: 90 RF: 0 hydrocodone-acetaminophen 7.5-325 mg tablet 1 - 2 tab PO Q6H PRN (Reason: pain) Qty: 180 RF: 0 Referrals: Edgardo Hastings MD [Non-Staff] - Joe Pierre MD [Primary Care Provider] - <Estela Wild DO - Last Filed: 07/15/20 07:19> Cosign ED Attending Cosignature Attestation: I was immediately available in the department for consultation. This documentation has been reviewed. Supervised by Estela Wild DO
[2020-07-06 16:13] LABS: Add Manual Diff / Slide Review NO; Basophils Absolute Auto 100 /uL (0-100); Eosinophils Absolute Auto 400 /uL (0-450); Eosinophils Percent Auto 3.8 % (2-4); Hematocrit 41.4 % (41-53); Hemoglobin 13.8 g/dL (13.5-17.5); Lymphocytes Absolute Auto 2000 /uL (1100-4500); Lymphocytes Percent Auto 19.9 % (25-40); Mean Corpuscular HGB Conc 33.4 % (30-36); Mean Corpuscular Hemoglobin 31.3 PG (26-34); Mean Corpuscular Volume 93.9 fL (80-100); Monocytes Absolute Auto 700 /uL (0-900); Monocytes Percent Auto 6.4 % (3-14); Neutrophils Absolute Auto 7100 /uL (1500-7000); Neutrophils Percent Auto 68.9 % (50-75); Platelet Count 248 X10^3/uL (150-400); Red Blood Cell Count 4.41 X10^6/uL (4.5-5.9); Red Cell Distribution Width 13.5 % (11.6-14.8); White Blood Cell Count 10.3 X10^3/uL (4.5-11.0)
[2020-07-06 16:34] LABS: Lactate (Lactic Acid) 0.9 mmol/L (0.7-2.1)
[2020-07-06 16:35] LABS: Alanine Aminotransferase 30 IU/L (<50); Albumin Globulin Ratio 1.2 (1.0-2.8); Alkaline Phosphatase 108 U/L (38-126); Aspartate Aminotransferase 40 IU/L (17-59); BUN Creatinine Ratio 11.8 (6-22); Bilirubin Total 0.6 mg/dL (0.2-1.3); Blood Urea Nitrogen 16 mg/dL (9-20); Calcium 9.3 mg/dL (8.4-10.2); Carbon Dioxide 29 mmol/L (22-32); Chloride 108 mmol/L (98-107); Estimated Glomerular Filt Rate 50.5 mL/min (>60); Globulin 3.3 g/dL (1.7-4.1); Glucose 103 mg/dL (80-110); HEMOLYSIS 17 (0-50); Sodium 141 mmol/L (137-145); Total Protein 7.3 g/dL (6.3-8.2)
[2020-07-06 16:56] LABS: Procalcitonin < 0.05 ng/mL (<0.5)
[2020-07-06 17:30] VITALS: BP 132/81; PULSE 64; RESP 16; O2SAT 95
[2020-07-06] MEDS: TRIMETH/SULFA 160/800 (DS) TABLET 1 TAB PO (17:34)
== END 2020-07-06 17:56 | disposition home or self-care (01) ==
PROVIDERS: Emergency Provider Nurse Practitioner Family; PCP Internal Medicine
DX: N49.2 Inflammatory disorders of scrotum (principal); N43.3 Hydrocele, unspecified
CPT/HCPCS: 76870; 80053; 81003; 83605; 84145; 85025; 87070; 87075; 87077; 87186; 87205; 99284

== ENCOUNTER → 2020-07-09 09:47 | Outpatient (CLI) | payer OTHER, SELFPAY ==
--- NOTE | 2020-07-09 11:31 | DI.CT.S_ITS ---
PROCEDURE: CT CHEST ABD PEL WO CON INDICATIONS: kidney cancer TECHNIQUE: After the administration of oral contrast, 5 mm thick sections acquired from the lung apices to the symphysis pubis. 5 mm thick coronal and sagittal reformats acquired, with additional 7 mm coronal MIP reformats through the lungs. For radiation dose reduction, the following was used: automated exposure control, adjustment of mA and/or kV according to patient size. COMPARISON: [facility], CT, CT CHEST ABD PEL W CON, 07/25/2019, 11:48. [facility], CT, CT CHEST ABD PEL W CON, 12/17/2018, 10:57. [facility], CT, CT CHEST ABD PEL W CON, 09/03/2018, 11:18. [facility], CT, CT CHEST ABD PEL W CON, 04/10/2018, 11:51. FINDINGS: Image quality: Excellent. CHEST: Lungs and pleura: Bibasilar scars and atelectasis. No acute pulmonary opacities. No pleural effusions or pneumothorax. Central and peripheral airways are patent are normal in caliber. Mediastinum: Heart size is normal. No pericardial effusion. There is moderate coronary artery calcification. No mediastinal adenopathy by CT size criteria. Thoracic aorta and central pulmonary arteries are normal in size. Esophagus is normal in caliber. No hiatal hernia. Chest wall: No axillary or supraclavicular adenopathy by size criteria. Thyroid gland is normal. ABDOMEN: Solid organs: Liver is normal in size. There are multiple hepatic hypodensities, compatible with hepatic cyst. Gallbladder is normal. Pancreas is normal in contours. Spleen is normal in size. No adrenal nodules. Left kidney is surgically absent. There are multiple exophytic cortical nodules, most likely renal cysts, including a hyperdense cyst. These nodules are unchanged in size. Peritoneum and bowel: Small and large bowel loops are normal in caliber and wall thickness. No free fluid or air. Nodes and vessels: No retroperitoneal or mesenteric adenopathy by size criteria. Aorta and inferior vena cava are normal in size. Miscellaneous: No ventral hernias. PELVIS: Genitourinary: Bladder wall thickness is normal. Miscellaneous: No inguinal hernias or adenopathy. There is a left hydrocele. Bones: No suspicious bony lesions. No vertebral body compression fractures. Scoliosis and severe degenerative changes in thoracic and lumbar spine. IMPRESSION: 1. Suboptimal cancer evaluation due to lack of IV contrast. 2. Left nephrectomy. No definitive findings to suggest recurrent neoplasm. 3. Multiple exophytic nodules in right kidney are most likely cysts. 4. Multiple hepatic cysts. Dictated by: Austin Turner M.D. on 07/09/2020 at 16:33 Approved by: Austin Turner M.D. on 07/09/2020 at 17:31
== END ==
PROVIDERS: PCP Internal Medicine; Referring Provider Internal Medicine Hematology & Oncology; Visit Provider Internal Medicine Hematology & Oncology
DX: C64.9 Malignant neoplasm of unspecified kidney, except renal pelvis (principal); N28.9 Disorder of kidney and ureter, unspecified; K76.89 Other specified diseases of liver; Z90.5 Acquired absence of kidney
CPT/HCPCS: 71250; 74176

== ENCOUNTER 2021-03-09 09:50 | Emergency (ER) | payer OTHER, SELFPAY ==
[2021-03-09 10:18] VITALS: BP 128/79; PULSE 60; RESP 14; TEMP 36.3; O2SAT 100
--- NOTE | 2021-03-09 10:22 | DI.RAD.S_ITS ---
PROCEDURE: XR KNEE RT 3V INDICATIONS: right knee pain, felt pop. TECHNIQUE: 3 views of the knee were acquired. COMPARISON: [facility] [place], [place], XR KNEE 4+ VIEWS RIGHT, 02/10/2021, 10:18. FINDINGS: Bones: No fractures or dislocations. No suspicious bony lesions. There is moderate to severe medial and patellofemoral as well as minimal lateral compartment narrowing. Chondrocalcinosis is present. Severe periarticular osteophytes are present. No gross erosions. Appearance is relatively stable compared to 02/10/2021. Soft tissues: Moderate joint effusion. No suspicious soft tissue calcifications. 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 Dictated by: Sadia Noguera M.D. on 03/09/2021 at 11:25 Approved by: Sadia Noguera M.D. on 03/09/2021 at 11:27
--- NOTE | 2021-03-09 13:37 | ED.LOWEXIN ---
HPI - Extremity Injury (Lower) <Estela Wild, DO - Last Filed: 03/11/21 20:21> General Chief Complaint: Extremity Injury, Lower Stated Complaint: popped something in right knee yesterday Time Seen by Provider: 03/09/21 13:36 Source: patient Mode of arrival: Wheelchair Limitations: no limitations History of Present Illness HPI Narrative: 80-year-old male nonsmoker with history of hypertension presents with a chief complaint of any injury [place] He states that he was walking when his heel slipped a bit and he felt a pop. Patient is able to partially weight bear, he denies any numbness, tingling. No direct fall or trauma. Patient took [place] about 4 hours prior to arrival. Patient history of hypertension, renal cell carcinoma with nephrectomy, hyperlipidemia, and chronic back pain. Related Data Home Medications Medication Instructions Recorded Confirmed Vitamin D3 1,000 unit DAILY 07/23/20 07/23/20 ascorbic acid (vitamin C) 500 mg 500 mg DAILY 07/23/20 07/23/20 tablet (Vitamin C) zinc 50 mg capsule 50 mg PO DAILY 07/23/20 07/23/20 Previous Rx's Medication Instructions Recorded sildenafil 100 mg tablet (Viagra) 0 PO SEE INSTRUCTIONS #15 09/21/12 celecoxib 200 mg capsule 200 mg PO DAILY #90 cap 08/22/19 omeprazole 40 mg capsule,delayed 40 mg PO QDAY #90 cap 02/25/20 release simvastatin 80 mg tablet 40 mg PO DAILY #45 tab 02/25/20 atenolol 50 mg tablet 50 mg PO QDAY #90 tab 08/10/20 diazepam 5 mg tablet (Valium) 5 mg PO Q6HP #120 tab 09/29/20 nabumetone 750 mg tablet 750 mg PO BID #180 tab 12/29/20 hydrocodone 7.5 mg-acetaminophen 1 - 2 tab PO Q6H PRN #180 tab 03/10/21 325 mg tablet Allergies Allergy/AdvReac Type Severity Reaction Status Date / Time No Known Drug Allergies Allergy Unknown Verified 03/09/21 10:22 [NO KNOWN DRUG ALLERGIES] <Jaime Qureshi DO - Last Filed: 03/16/21 01:41> History of Present Illness HPI Narrative: 80-year-old male nonsmoker with history of hypertension presents with a chief complaint of any injury [place] He states that he was walking when his heel slipped a bit and he felt Review of Systems <Estela Wild DO - Last Filed: 03/11/21 20:21> Review of Systems ROS Unobtainable: All systems reviewed & are unremarkable except as noted in HPI and below Patient History <Estela Wild DO - Last Filed: 03/11/21 20:21> Medical History (Updated 03/09/21 @ 16:31 by Estela Wild DO) Ascending aortic aneurysm Cancer of kidney Cervical spine disease Dorsalgia (04/19/11) Essential hypertension H/O migraine Liver cyst (08/21/17) Mixed hyperlipidemia Osteoarthritis Renal cell carcinoma (04/18/17) Renal cyst (08/21/17) Right hydrocele (03/01/16) Surgical History History of nephrectomy (05/05/17) Social History marital status: number of children: 2 household members: spouse lives independently: Yes caregiver/support person: No housing: house pets and animals: No education level: college (3 years) occupational status: other (Retired) 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 anabel/scientology: None travel history: recent ([place]) and over 6 months ago ([place]) leisure activities: fishing, reading and other (Boat work) Smoking Status: Never smoker Tobacco: How many years used: 0 quit status: quit date established (Never Started) second hand exposure: No alcohol intake: current (Rarely) substance use type: does not use Smoking Status: Never smoker alcohol intake frequency: a few times a month Substance Use Type: does not use Exam <Estela Wild DO - Last Filed: 03/11/21 20:21> Narrative Exam Narrative: GENERAL: Alert and oriented x three, elderly male in mild distress patient is seated in recliner. HEENT: Head normocephalic, atraumatic, EOMI, pupils reactive, face symmetric, moist mucous membranes NECK: Supple, full range of motion CARDIOVASCULAR: Regular rate and rhythm without murmurs, rubs or gallops. RESPIRATORY: Breath sounds equal bilaterally, no wheezes rales or rhonchi. ABDOMEN: Soft, nontender. Normoactive bowel sounds all 4 quadrants. No guarding or rebound, rigidity, no mass EXTREMITIES: Normal range of motion, no clubbing. Patient has tenderness over the tibia. Patient has negative joint laxity testing. Neurovascularly intact. Cap refill less than 2 seconds. 2+ pulse. NEUROLOGICAL: Cranial nerves II through XII grossly intact. Moving all extremities SKIN: Warm, dry, no petechiae, no rashes or lesions. Initial Vital Signs Initial Vital Signs: Vital Signs Temperature 97.4 F L 03/09/21 10:18 Pulse Rate 60 03/09/21 10:18 Respiratory Rate 14 03/09/21 10:18 Blood Pressure 128/79 03/09/21 10:18 Pulse Oximetry 100 03/09/21 10:18 <Jaime Qureshi DO - Last Filed: 03/16/21 01:41> Initial Vital Signs Initial Vital Signs: Vital Signs Temperature 97.4 F L 03/09/21 10:18 Pulse Rate 60 03/09/21 10:18 Respiratory Rate 14 03/09/21 10:18 Blood Pressure 128/79 03/09/21 10:18 Pulse Oximetry 100 03/09/21 10:18 Course <Estela Wild, DO - Last Filed: 03/11/21 20:21> Orders Ordered: ED Orders 03/09/21 10:22 XR knee RT 3V Stat 03/09/21 13:58 CT LE RT wo con Stat Consultations Consultation #1: Dr. Suresh, reviewed films. Plan for outpatient follow-up with Orthopedic surgery, possible MRI in the future. Weight bearing as tolerated. Knee immobilizer. Patient to contact orthopedics for follow up. Vital Signs Vital signs: Vital Signs - 8 hr 03/09/21 10:18 03/09/21 13:54 Temperature 97.4 F L Pulse Rate 60 51 L Respiratory Rate 14 Blood Pressure 128/79 149/83 H Pulse Oximetry 100 97 <Jaime Qureshi DO - Last Filed: 03/16/21 01:41> Orders Ordered: ED Orders 03/09/21 10:22 XR knee RT 3V Stat 03/09/21 13:58 CT LE RT wo con Stat Vital Signs Vital signs: Vital Signs - 8 hr 03/09/21 10:18 03/09/21 13:54 Temperature 97.4 F L Pulse Rate 60 51 L Respiratory Rate 14 Blood Pressure 128/79 149/83 H Pulse Oximetry 100 97 MDM - Extremity Injury (Lower) <Estela Wild DO - Last Filed: 03/11/21 20:21> Imaging Data Extremity x-ray #1: Radiologist's Impression: [address] [id number] ReportSigned Patient: Carlos Villagomez AM[facility]#: [id number]: [id number]/Sex: 80 / MDate of Service: 03/09/21Loc: EDAccession Number: [id number] Procedure: XR knee RT 3V Ordering Provider: Estela Widl D.O. PROCEDURE: XR KNEE RT 3V INDICATIONS: right knee pain, felt pop. TECHNIQUE: 3 views of the knee were acquired. [facility]+ VIEWS RIGHT, 02/10/2021, 10:18. FINDINGS: Bones: No fractures or dislocations. No suspicious bony lesions. There is moderate to severe medial and patellofemoral as well as minimal lateral compartment narrowing. Chondrocalcinosis is present. Severe periarticular osteophytes are present. No gross erosions. Appearance is relatively stable compared to 02/10/2021. Soft tissues: Moderate joint effusion. No suspicious soft tissue calcifications. 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 Dictated by: Sadia Noguera M.D. on 03/09/2021 at 11:25 Approved by: Sadia Noguera M.D. on 03/09/2021 at 11:27 Discharge Plan Departure Patient Disposition: Home Clinical Impression: Injury of knee, Joint effusion Activity Restrictions/Additional Instructions: Follow up with Orthopedic surgery in the next 7-10 days. Call for an appointment. Your imaging including a CT today shows a fracture of your lateral tibial osteophyte. The tibia itself appears intact. There is a large effusion in the joint which is also likely causing pain. You have significant arthritis within the joint of your knee. You may need to follow-up with orthopedic surgery they may evaluate with MRI in the future to check for ligamentous changes. Use walker with toe-touch weight-bearing until you follow-up with orthopedic surgery or if her symptoms completely resolved. Wear knee immobilizer while walking. You may remove at home while resting. You may take home pain medication as prescribed. Splint Care: Keep splint clean and dry. Elevated affected body part to decrease swelling. OK to use ice pack on the affected body part. Use for 15-20 minutes each time, for 5-6x per day. If you develop worsening pain, numbness, tingling, discoloration of the affected body part, loosen knee immobilizer, and either see your doctor for an urgent re-assessment, or return to the Emergency Department. Return to the Emergency Department for any new or worsening symptoms. Prescriptions: No Action sildenafil [Viagra] 100 MG tablet 0 PO SEE INSTRUCTIONS Qty: 15 RF: 11 omeprazole 40 mg capsule,delayed release(DR/EC) 40 mg PO QDAY Qty: 90 RF: 3 simvastatin 80 mg tablet 40 mg PO DAILY Qty: 45 RF: 3 atenolol 50 mg tablet 50 mg PO QDAY Qty: 90 RF: 3 diazepam [Valium] 5 mg tablet 5 mg PO Q6HP Qty: 120 RF: 0 nabumetone 750 mg tablet 750 mg PO BID Qty: 180 RF: 3 hydrocodone-acetaminophen 7.5-325 mg tablet 1 - 2 tab PO Q6H PRN (Reason: pain) Qty: 180 RF: 0 celecoxib 200 mg capsule 200 mg PO DAILY Qty: 90 RF: 0 ascorbic acid (vitamin C) [Vitamin C] 500 mg Tablet 500 mg DAILY RF: 0 zinc 50 mg Capsule 50 mg PO DAILY RF: 0 Vitamin D3 1,000 units 1,000 unit DAILY RF: 0 Referrals: Joe Pierre MD [Primary Care Provider] - Gi Suresh MD [Physician] -
[2021-03-09 13:54] VITALS: BP 149/83; PULSE 51; O2SAT 97
--- NOTE | 2021-03-09 13:58 | DI.CT.S_ITS ---
PROCEDURE: CT LE RT WO CON INDICATIONS: pain, swelling TECHNIQUE: Noncontrast 1-1.5 mm axial sections acquired from the mid-patella to the proximal tibia, with coronal and sagittal reformats. COMPARISON: None. FINDINGS: Image quality: Excellent. Bones: There is a nondisplaced fracture through a medial tibial osteophyte. The tibial plateau itself appears intact. There is a partially calcified medial meniscus present with severe medial and lateral compartmental joint space narrowing and subchondral sclerosis. The anterior and posterior tibial spines appear intact although remodeled. The separate anterior and posterior cruciate ligaments are not visualized and likely chronically injured/disorganized. Medial and lateral femoral condyles are intact. Severe patellofemoral joint space narrowing with marginal osteophytes and calcification of the lateral patellar ligaments noted. Soft tissues: Popliteal cyst noted measuring 3.4 x 2.4 cm. A 1 x 1.6 cm collection of loose bodies noted in the posterior aspect of the joint space. There is a large joint effusion present. Diffuse atherosclerotic vascular calcification noted. Superior patellar enthesophyte and/or calcification in the patellar superior ligament noted as well. IMPRESSION: 1. Nondisplaced fracture through a lateral tibial osteophyte. Tibial plateau intact. Large associated joint effusion. Consider follow-up MRI to evaluate ligamental integrity 2. Advanced degenerative osteoarthritis with severe joint space narrowing, subchondral sclerosis, and probable posterior loose bodies. 3. Meniscal chondrocalcinosis, vascular calcific atherosclerosis, and popliteal cyst. Dictated by: Serjio Rios M.D. on 03/09/2021 at 14:05 Approved by: Serjio Rios M.D. on 03/09/2021 at 14:33
[2021-03-09 17:00] VITALS: BP 151/85; PULSE 97; RESP 16; O2SAT 99
== END 2021-03-09 17:00 | disposition home or self-care (01) ==
PROVIDERS: Emergency Provider Emergency Medicine; PCP Internal Medicine
DX: M25.461 Effusion, right knee (principal); S89.91XA Unspecified injury of right lower leg, initial encounter
CPT/HCPCS: 73562; 73700; 99283; 99284

== ENCOUNTER → 2021-04-02 15:28 | Outpatient (CLI) | payer OTHER, SELFPAY ==
[2021-04-02 16:59] LABS: Alanine Aminotransferase 21 IU/L (<50); Albumin 3.8 g/dL (3.5-5.0); Albumin Globulin Ratio 1.5 (1.0-2.8); Alkaline Phosphatase 72 U/L (38-126); Aspartate Aminotransferase 36 IU/L (17-59); BUN Creatinine Ratio 11.8 (6-22); Bilirubin Total 0.3 mg/dL (0.2-1.3); Blood Urea Nitrogen 15 mg/dL (9-20); Calcium 9.1 mg/dL (8.4-10.2); Carbon Dioxide 25 mmol/L (22-32); Chloride 108 mmol/L (98-107); Estimated Glomerular Filt Rate 54.7 mL/min (>60); Globulin 2.6 g/dL (1.7-4.1); Glucose 91 mg/dL (80-110); HEMOLYSIS < 15 (0-50); Sodium 138 mmol/L (137-145); Total Protein 6.4 g/dL (6.3-8.2)
== END ==
PROVIDERS: PCP Internal Medicine; Referring Provider Internal Medicine; Visit Provider Internal Medicine
DX: C64.9 Malignant neoplasm of unspecified kidney, except renal pelvis (principal); E78.2 Mixed hyperlipidemia; I10 Essential (primary) hypertension
CPT/HCPCS: 36415; 80053

== ENCOUNTER → 2021-08-04 10:23 | Outpatient (CLI) | payer OTHER, SELFPAY ==
--- NOTE | 2021-08-04 11:05 | DI.CT.S_ITS ---
PROCEDURE: CT CHEST ABD PEL WO CON INDICATIONS: renal cell carcinoma TECHNIQUE: After the administration of oral contrast, 5 mm thick sections acquired from the lung apices to the symphysis pubis. 5 mm thick coronal and sagittal reformats acquired, with additional 7 mm coronal MIP reformats through the lungs. For radiation dose reduction, the following was used: automated exposure control, adjustment of mA and/or kV according to patient size. COMPARISON: [facility], CT, CT CHEST ABD PEL W CON, 07/25/2019, 11:48. [facility], CT, CT CHEST ABD PEL W CON, 12/17/2018, 10:57. [facility], CT, CT CHEST ABD PEL W CON, 09/03/2018, 11:18. [facility], CT, CT CHEST ABD PEL W CON, 04/10/2018, 11:51. [facility], CT, CT CHEST ABD PEL WO CON, 07/09/2020, 11:30. FINDINGS: Image quality: Limited by lack of IV contrast. CHEST: Lungs and pleura: No suspicious pulmonary nodules are seen. No acute pulmonary opacities. Centrilobular emphysematous changes are seen. These are more prominent at the lung apices than at the lung bases. No pleural effusions or pneumothorax. Central and peripheral airways are patent are normal in caliber. Mediastinum: Heart size is normal. At least moderate coronary artery calcification is seen. No pericardial effusion. No mediastinal adenopathy by CT size criteria. Thoracic aorta and central pulmonary arteries are normal in size. Esophagus is normal in caliber. No hiatal hernia. Chest wall: No axillary or supraclavicular adenopathy by size criteria. Thyroid gland demonstrates no significant noncontrast abnormality. ABDOMEN: Solid organs: Liver is normal in size. Numerous simple appearing liver cysts are seen. Gallbladder wall is not thickened. Pancreas is normal in contours. Spleen is normal in size. No adrenal nodules. Left nephrectomy change is seen. To the limits of noncontrast CT, no abnormal soft tissue can be seen within the nephrectomy bed. Along the posterior aspect of the right kidney, there is a stable hyperdense cyst seen that measures 1.6 cm. Simple appearing cysts are seen elsewhere within the right kidney, with the most prominent inferiorly measuring water density and 4.6 cm. The nonobstructing right-sided kidney stones are seen that measure up to 4 mm. No hydronephrosis is seen. Peritoneum and bowel: Small and large bowel loops are normal in caliber and wall thickness. No free fluid or air. Colonic diverticulosis is seen, without findings of active diverticulitis. Nodes and vessels: No retroperitoneal or mesenteric adenopathy by size criteria. Aorta and inferior vena cava are normal in size. Miscellaneous: No ventral hernias. PELVIS: Genitourinary: Bladder wall thickness is normal. Bilateral hydrocele can be seen. Miscellaneous: No inguinal hernias or adenopathy. Bones: No suspicious bony lesions. No vertebral body compression fractures. S-shaped scoliotic curvature is seen. Age-appropriate bony degenerative changes are seen, which are worst within the lumbar spine. IMPRESSION: Left nephrectomy, without abnormal soft tissue within the left nephrectomy bed. The right kidney demonstrates a stable hyperdense cyst. Simple cysts and nonobstructing right-sided kidney stones are also seen. To the limits of noncontrast CT, no findings of metastatic disease are seen. Incidental note is made of: At least moderate coronary artery calcification Simple appearing liver cysts Diverticulosis, without active diverticulitis Bilateral hydrocele S shaped scoliotic curvature Dictated by: Sonido Melchor M.D. on 08/04/2021 at 14:42 Approved by: Sonido Melchor M.D. on 08/04/2021 at 14:54
== END ==
PROVIDERS: PCP Internal Medicine; Referring Provider Internal Medicine Hematology & Oncology; Visit Provider Internal Medicine Hematology & Oncology
DX: C64.9 Malignant neoplasm of unspecified kidney, except renal pelvis (principal); I71.2 Thoracic aortic aneurysm, without rupture; N28.1 Cyst of kidney, acquired; N20.0 Calculus of kidney; I25.10 Atherosclerotic heart disease of native coronary artery without angina pectoris; K76.89 Other specified diseases of liver; K57.90 Diverticulosis of intestine, part unspecified, without perforation or abscess without bleeding; N43.3 Hydrocele, unspecified; M41.9 Scoliosis, unspecified; Z90.5 Acquired absence of kidney
CPT/HCPCS: 71250; 74176

== ENCOUNTER → 2021-10-14 15:57 | Outpatient (CLI) | payer OTHER, SELFPAY ==
[2021-10-14 17:16] LABS: Alanine Aminotransferase 24 IU/L (<50); Albumin Globulin Ratio 1.4 (1.0-2.8); Alkaline Phosphatase 70 U/L (38-126); Aspartate Aminotransferase 44 IU/L (17-59); BUN Creatinine Ratio 13.7 (6-22); Bilirubin Total 0.6 mg/dL (0.2-1.3); Blood Urea Nitrogen 18 mg/dL (9-20); Calcium 9.8 mg/dL (8.4-10.2); Carbon Dioxide 27 mmol/L (22-32); Chloride 107 mmol/L (98-107); Estimated Glomerular Filt Rate 52.6 mL/min (>60); Globulin 2.8 g/dL (1.7-4.1); Glucose 97 mg/dL (80-110); HEMOLYSIS 17 (0-50); Potassium 4.7 mmol/L (3.4-5.1); Sodium 139 mmol/L (137-145); Total Protein 6.8 g/dL (6.3-8.2)
== END ==
PROVIDERS: PCP Internal Medicine; Referring Provider Internal Medicine; Visit Provider Internal Medicine
DX: E78.2 Mixed hyperlipidemia (principal); I10 Essential (primary) hypertension; Z90.5 Acquired absence of kidney
CPT/HCPCS: 36415; 80053

== ENCOUNTER → 2021-12-22 11:59 | Outpatient (CLI) | payer OTHER, SELFPAY ==
[2021-12-22 12:42] LABS: Appearance Urine UA CLEAR; Bilirubin Urine UA NEGATIVE (NEGATIVE); Color Urine UA YELLOW; Glucose Urine UA NEGATIVE (Negative); Ketones Urine UA NEGATIVE (NEGATIVE); Leukocyte Esterase Urine UA NEGATIVE (NEGATIVE); Nitrite Urine UA NEGATIVE (Negative); Occult Blood Urine UA NEGATIVE (Negative); Protein Urine UA NEGATIVE (Negative); Specific Gravity Urine UA <=1.005 (1.000-1.035); Urobilinogen Urine UA 0.2 E.U./dL (0.2)
[2021-12-22 12:45] LABS: Add Manual Diff / Slide Review NO; Basophils Absolute Auto 100 /uL (0-100); Basophils Percent Auto 0.8 % (0-2); Eosinophils Absolute Auto 300 /uL (0-450); Eosinophils Percent Auto 3.8 % (2-4); Hemoglobin 13.1 g/dL (13.5-17.5); Lymphocytes Absolute Auto 1700 /uL (1100-4500); Lymphocytes Percent Auto 25.4 % (25-40); Mean Corpuscular HGB Conc 33.6 % (30-36); Mean Corpuscular Volume 92.2 fL (80-100); Monocytes Absolute Auto 500 /uL (0-900); Neutrophils Absolute Auto 4300 /uL (1500-7000); Platelet Count 222 X10^3/uL (150-400); Red Blood Cell Count 4.24 X10^6/uL (4.5-5.9); Red Cell Distribution Width 14.1 % (11.6-14.8); White Blood Cell Count 6.8 X10^3/uL (4.5-11.0)
[2021-12-22 12:53] LABS: Hemoglobin A1C% w Est Avg Glu 5.8 % (4.0-6.0)
[2021-12-22 12:58] LABS: RBC Urine None Seen (0-5/HPF); Squamous Epithelial Cell Urine 0-1 /HPF (0-5/HPF); WBC Urine 0-1/HPF (0-5/HPF)
[2021-12-22 12:59] LABS: Bacteria Urine None Seen; Culture Indicated Urine Cult Not Indicated
[2021-12-22 13:18] LABS: BUN Creatinine Ratio 11.4 (6-22); Blood Urea Nitrogen 14 mg/dL (9-20); Calcium 9.2 mg/dL (8.4-10.2); Carbon Dioxide 25 mmol/L (22-32); Chloride 108 mmol/L (98-107); Estimated Glomerular Filt Rate 59 mL/min (>60); Glucose 103 mg/dL (80-110); HEMOLYSIS < 15 (0-50); Potassium 4.5 mmol/L (3.4-5.1); Sodium 140 mmol/L (137-145)
== END ==
PROVIDERS: PCP Internal Medicine; Referring Provider Orthopaedic Surgery; Visit Provider Orthopaedic Surgery
DX: Z01.818 Encounter for other preprocedural examination (principal); R73.9 Hyperglycemia, unspecified; Z01.812 Encounter for preprocedural laboratory examination; N39.0 Urinary tract infection, site not specified
CPT/HCPCS: 36415; 80048; 81001; 83036; 85025; 93005

== ENCOUNTER → 2022-01-24 09:47 | Outpatient (CLI) | payer OTHER, SELFPAY ==
[2022-01-24 12:28] LABS: COVID19 -Nasal RAPID Negative (Negative)
== END ==
PROVIDERS: PCP Internal Medicine; Visit Provider Family Medicine Sleep Medicine
DX: Z20.822 Contact with and (suspected) exposure to COVID-19 (principal); Z01.812 Encounter for preprocedural laboratory examination
CPT/HCPCS: 87635; C9803

== ENCOUNTER 2022-01-25 10:25 | Day surgery (SDC) | payer OTHER, SELFPAY ==
[2022-01-18 12:42] VITALS: BMI 27.8
[2022-01-25] VITALS (12 sets, daily range): BP systolic 90–160; BP diastolic 55–97; PULSE 61–77; RESP 12–20; TEMP 35.4–36.3; O2SAT 91–99; BMI 27.8
--- NOTE | 2022-01-25 07:47 | DI.RAD.S_ITS ---
PROCEDURE: XR KNEE RT 1TO2V INDICATIONS: prosthesis placement TECHNIQUE: 2 view(s) of the knee acquired. COMPARISON: [facility], CR, XR KNEE RT 3V, 03/09/2021, 10:27. [facility], CR, XR KNEE 4+ VIEWS RIGHT, 10/08/2021, 9:26. FINDINGS: Bones: Patient is status post knee joint arthroplasty. Hardware components are in expected positions. Visualized bony structures are intact. Soft tissues: Overlying postoperative changes are noted. Vascular calcifications indicate atherosclerosis. IMPRESSION: Expected immediate postoperative appearance of right TKA. Dictated by: Jorden Beckham RR Interpreted: Sadia Noguera MD on 01/25/2022 at 14:11 Transcribed by: ANTWON on 01/25/2022 at 14:11 Approved by: Sadia Noguera M.D. on 01/25/2022 at 14:19
[2022-01-25] MEDS: TRANEXAMIC ACID 1,000 MG VIAL 1000 MG INJ ×2 (10:45→13:28)
--- NOTE | 2022-01-25 10:53 | P.OP_ITS ---
Operative Date/Time/Diagnoses Date of procedure: 01/25/22 Time of procedure: 11:30 Pre-op diagnosis: Severe right knee OA Post-op diagnosis: same Procedure & Clinicians Procedure: Right total knee arthroplasty Same procedure as scheduled: Yes Indications: The patient has had progressively worsening right knee pain with radiographic changes consistent with arthritis. Non-operative management has failed and the patient has requested total knee replacement. The risks, benefits and alternatives to surgery were discussed with the patient prior to proceeding. Risks discussed included, but were not limited to, failure to relieve pain, stiffness, infection, nerve damage, deep venous thrombosis, pulmonary embolism, stroke, coma, heart attack, permanent paralysis and , as well as the potential need for eventual revision of the prosthetic. Surgeon: Gi Suresh Service Counter Cashier: Zane Silva Anesthesia Type: General Operative Notes Findings: Severe right knee osteoarthritis, adequate stability Closure Type: primary Specimen(s): none sent Prosthetic devices, grafts, tissues, transplants, or devices: Suresh and Nephew Journey BCS 2 size 7 femur, size 6 tibia, +10 poly, 38 mm round patella Applied: drain(s) Estimated Blood Loss (mL): 250 Blood products transfused: none Tourniquet time (min): 88 Procedure in detail: The patient was seen in the pre-operative area, where the patient identified the right knee as the operative site and this was marked with my initials. The patient received pre-operative antibiotics, and was taken to the operating room and placed on the operative table in the supine position. After satisfactory anesthesia, a time analysis clerk out was performed. The right leg was encircled with a tourniquet about the proximal thigh, and the leg was prepared from the toes to the tourniquet with ChloroPrep in the usual fashion and draped through sterile drapes. The leg was elevated and exsanguinated with Eschmark bandage and the tourniquet inflated to [250] mmHg pressure. The knee was approached through an approximately 18 cm incision centered over the patella and carried into the knee through a medial parapatellar arthrotomy. A portion of the medial and lateral meniscus was resected. Soft tissue was carefully mobilized around the patella the patella was measured with a caliper. He had extensive scarring in his extensor mechanism in multiple osteophytes around his patella as of well as a fairly large relatively lose suprapatellar fragment. Multiple osteophytes were removed. I also did a fairly extensive synovectomy in the lateral compartment is he had marked synovitis and thickening of his capsule consistent with previous history of trauma. His patella and extensor mechanism was meticulously handled. I selected a 38 mm round patella and resected 9 mm of bone. Bone was resected from the patella and the patellar height was reconstituted with up an appropriate sized patellar component. A cover was then placed on the patella. A small amount of additional medial and lateral meniscus was resected. The distal femur was cut at 5?. A [+2] cut was used. It looked like an appropriate distal femoral cut and the cut was made without difficulty. There was a fairly large loose medial osteophyte which had broken free on the medial tibial plateau and that was carefully removed. An extramedullary guide was used for the tibial cut. 10 mm was resected off the least affected side.The tibia was prepared. The rotation was assessed. The patient was placed in extension residual medial and lateral meniscus as well as any residual bone was carefully resected. [No] additional tibia was resected. Hemostasis was achieved especially posteriorly. Additional local was injected into the posterior capsule. The extension gap was assessed and additional releases for gap balancing were performed as necessary. It was checked with the gap fabrication technician. The femoral component was trial was placed and the notch was finished. The rotation was assessed and the appropriate size femoral guide was placed on the distal femur and finishing cuts were made. There was no evidence of notching. The anterior, posterior and chamfer cuts were then made. The posterior osteophytes and soft tissues were then removed. The posterior capsule was injected with part of a mixture of 60 ml 0.25% Marcaine mixed with 20 ml Exparel for post operative pain control. The remainder of this mixture was injected into the capsule and subcutaneous tissues during cement curing. The tibial and femoral components were then placed and the knee placed through a range of motion. Range of motion was [0-130], with good stability throughout the range. The trials were then removed, and the tibia was finished. The bone was prepared with pulsatile lavage, and dried with a sponge. Cement was applied and the final prosthetics placed. Excess cement was removed during and after cement curing. A brief Betadine soak was performed. After confirming there was no extruded cement posteriorly, the final tibial insert was placed. The knee was copiously irrigated and the tourniquet deflated. Hemostasis was obtained with the Bovie cautery. A drain was placed and brought out superolaterally. The capsule was closed with interrupted nonabsorbable suture. The subcutaneous layer was closed with barbed sutures, and the skin with a running 3-0 V-Lock suture and Surgical glue. An Aquacel Ag dressing was applied and the patient was taken to recovery having tolerated the procedure well. Complications: none Post-operative Condition: stable Disposition: Acute Care Plan for aftercare: The patient will be maintained on a standard total knee replacement protocol with weight bearing as tolerated. The patient will receive aspirin and sequential compression devices for DVT prophylaxis. The patient will be discharged home when safe for the home environment.
--- NOTE | 2022-01-25 10:53 | PM.PREOP ---
Pre-operative Note COVID-19 COVID-19 status: Negative Interval Note History & Physical reviewed/Exam performed by Physician: Yes Changes to H&P: No
[2022-01-25] MEDS: ACETAMINOPHEN 325 MG TABLET 975 MG PO (10:54)
[2022-01-25] MEDS: PREGABALIN 75 MG CAPSULE PO (10:55)
[2022-01-25] MEDS: CELECOXIB 200 MG CAPSULE PO (10:55)
[2022-01-25] MEDS: VANCOMYCIN 1,000 MG/200 ML PIGGYBACK 200 MG IV (10:56)
[2022-01-25] MEDS: LACTATED RINGERS 1,000 ML 84 ML IV (10:57)
[2022-01-25] MEDS: CEFAZOLIN 2 GM/20 ML SYRINGE IV ×2 (11:45→20:40)
--- NOTE | 2022-01-25 11:58 | SUR.OPER ---
Supine on padded OR bed. Pillow under head, arms secured on padded armboards <90 degree abduction. Safety belt across torso. Non-operative leg secured with tape over blanket over lower leg. Operative leg secured in DeMayo/Bryce/Nathe positioner. Foam padded brace at thigh of operative leg. Directed and approved by surgeon
[2022-01-25] MEDS: BUPIVACAINE 0.25% W/ EPI 30 ML VIAL 60 ML INJ (12:04)
[2022-01-25] MEDS: BUPIVACAINE LIPOSOME 266 MG/20 ML VIAL INJ (12:05)
--- NOTE | 2022-01-25 14:19 | SUR.PHASEI ---
report called to Phi STAFFORD and opportunity for questions given. Pt being transferred to room 203. pt updated on transfer and is agreeable.
--- NOTE | 2022-01-25 14:45 | PC.NURSE ---
Patient brought up to room 203, VSS. Patient is awake, oriented and answering questions appropriately. Denies pain. Denies complaint. Right knee has BRITTANI dressing in place with green light on, wrapped in shirley wrap CDI. Hemovac in place, clamped, per SENIOR COST ANALYST is to be unclamped at 1600 today. Patient oriented to room and call light, bed alarm active for safety and call light placed within reach. Patient instructed on need to use urinal, urinal placed within reach. No transfer orders available to activate, SENIOR COST ANALYST notified and he will attempt to reach Dr. Suresh in surgery. Continue to monitor.
[2022-01-25] MEDS: LACTATED RINGERS 1,000 ML 100 ML IV (15:34)
--- NOTE | 2022-01-25 17:01 | PC.NURSE ---
Patients hemovac unclamped at 1600, he denies pain at this time. is in room visiting and he denies pain.
[2022-01-25] MEDS: ACETAMINOPHEN 325 MG TABLET 650 MG PO (18:27)
[2022-01-25] MEDS: ASPIRIN EC 81 MG TABLET PO (20:40)
[2022-01-25] MEDS: ATORVASTATIN 20 MG TABLET PO (20:40)
[2022-01-25] MEDS: DOCUSATE 100 MG CAPSULE PO (20:40)
[2022-01-25] MEDS: OXYCODONE IR 5 MG TABLET PO (20:47)
[2022-01-26] MEDS: ACETAMINOPHEN 325 MG TABLET 650 MG PO ×3 (00:25→11:29)
[2022-01-26] MEDS: OXYCODONE IR 5 MG TABLET PO ×2 (00:26→04:03)
[2022-01-26] MEDS: LACTATED RINGERS 1,000 ML 100 ML IV (00:42)
[2022-01-26] MEDS: CEFAZOLIN 2 GM/20 ML SYRINGE IV (04:00)
[2022-01-26 04:25] VITALS: BP 117/70; PULSE 71; RESP 18; TEMP 36.8; O2SAT 93
[2022-01-26 05:41] LABS: Hematocrit 33.1 % (41-53); Hemoglobin 11.2 g/dL (13.5-17.5)
[2022-01-26] MEDS: HYDROMORPHONE 0.5 MG INJ 0.2 MG IV (06:23)
[2022-01-26 07:00] VITALS: BP 100/71; PULSE 68; RESP 17; TEMP 36.4; O2SAT 94
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
[2022-01-26] MEDS: OXYCODONE IR 10 MG TABLET PO ×2 (08:02→11:28)
[2022-01-26] MEDS: ASPIRIN EC 81 MG TABLET PO (08:03)
[2022-01-26] MEDS: DOCUSATE 100 MG CAPSULE PO (08:03)
[2022-01-26] MEDS: CHOLECALCIFEROL (VITAMIN D3) 1,000 UNIT TABLET 2000 UNIT PO (08:04)
[2022-01-26] MEDS: ASCORBIC ACID 500 MG TABLET PO (08:04)
[2022-01-26] MEDS: atenoloL 50 MG TABLET PO (08:09)
[2022-01-26] MEDS: NABUMETONE 500 MG TABLET 750 MG PO (08:09)
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
--- NOTE | 2022-01-26 09:50 | PC.NURSE ---
Addendum entered by Raquel Good R.N. 01/26/22 14:18: Pt son here for caregiver training. HL discontinued intact. BRITTANI dsg CDI. Home instructions given w/understanding Pt & son escorted by staff via W/C to waiting vehicle in stable post op status. Original Note: Pt med w/Oxycodone at 0810 for discomfort, w/god relief. SpO2 97% Ra HL LFA intact/patent Hemavac discontinued per MD orders, Pt has orders for discharge, possibly @ 1600 Call light w/in reach, pt calls appropriately for needs.
[2022-01-26 10:50] VITALS: BP 117/77; PULSE 69; RESP 18; TEMP 36.5; O2SAT 94
--- NOTE | 2022-01-26 13:53 | PT.IPTN ---
Current Diagnoses Unilateral primary osteoarthritis, right knee (01/25/22) Surgery Performed Operation Date: 01/25/22 14:30 Actual Procedures p Total Knee Arthroplasty(Right) - Gi Suresh MD Physical Therapy Treatment Note M2 PT-IP Current Condition Start: 01/26/22 07:28 Freq: NEEDED Status: Active Protocol: Document 01/26/22 09:50 AB (Rec: 01/26/22 12:58 AB [id number]) Physical Therapy Current Condition Current Condition Evaluation Date 01/26/22 Treatment Diagnosis s/p R TKA; difficulty in walking Onset Date 01/25/22 M3 PT-IP Subjective Start: 01/26/22 07:28 Freq: NEEDED Status: Active Protocol: Document 01/26/22 13:30 KS (Rec: 01/26/22 14:01 KS [id number]) Subjective Physical Therapy Visit Type Type Treatment Note Visit Start Time 13:30 Visit Stop Time 13:53 Total Visit Minutes 23 Notes Son present for caregiver training Number of ELEVATOR INSTALLER APPRENTICE Visits 1 Physical Therapy Visit Comments Patient Comments agreeable to do PT Therapy Pain Assessment Pain When Pain Assessed At Rest Pain Present Pain Present Pain Reported M4 PT-IP Mobility and Gait Start: 01/26/22 07:28 Freq: NEEDED Status: Active Protocol: Document 01/26/22 13:30 KS (Rec: 01/26/22 14:01 KS [id number]) PT-Bed Mobility Assessment Scooting Scooting to Edge of Bed Standby Assistance PT-Transfer Assessment Sit to and From Stand Sit to and from Stand Standby Assistance,1 Person Assistance,Use of Upper Extremities Equipment Transfer Assistive Device Gait Belt,Front Wheeled Walker Orthotic/Prosthetic Devices or Brace: No Transfers Transfer Destination Chair Transfer Technique ambulated Transfer Ability Level of Assist Standby Assistance,Contact Guard Assistance,1 Person Assistance,Use of Upper Extremities Comments Mobility Comments Pt in chair w/ son in room upon arrival and ready for caregiver training. Demonstrated gait belt application to pts son. Pt sit <>stand w/ SBA w/ FWW and ambulated ~40 ft to platform step in hallway w/ FWW SBA w/ step to pattern and decreased foot clearance but good use of FWW and good safety awareness . Pt ascended/descended platofrm step x2 w/ FWW CGA and cues for sequencing. Pts son able to provide assist and cues for second step. Pt then ambulated back to room and transferred to chair SBA. Pt left in chair w/ all needs in reach. Gait Assessment Gait Gait Assistance Required: Standby Assistance,Contact Guard Assist,1 Person Assist Distance (Feet) 80 Able to Maintain Weight Bearing Status Yes During Gait Assistive Devices Assistive Device Gait Belt,Front Wheeled Walker Orthotic/Prosthetic Devices or Brace: No Gait Deviations General Gait Pattern Antalgic,Decreased Stride Length,Decreased Feet Clearance Factors Limiting Gait Function Factors Limiting Gait Function Decreased Activity Tolerance, Decreased Strength,Limited Range of Motion,Pain,Poor Balance,Poor Safety Awareness Comments Gait Comments Refer to mobility section Stair Climbing Assessment Evaluation Level of Assist On Stairs Contact Guard Assistance,1 Person Assistance Devices Stair Climbing Assistive Devices Front Wheel Walker Technique/Endurance Stair Climbing Direction Ascend and Descend Stair Climbing Technique Step to Step Number of Steps Climbed 1 Stair Climbing Set # Repetitions (reps) 2 Comments Stair Climbing Comments Pt ascended/descended platform step w/ FWW and CGA and cues for leg sequencing. Pt son able to safely assist. Pt and son feel safe to perform at home. PT-Balance Assessment Sitting Balance and Reactions Static Sitting Balance Ability Normal Dynamic Sitting Balance Ability Good Standing Balance and Reactions Static Standing Balance Ability Good Dynamic Standing Balance Ability Fair Device Used FWW M5 PT-IP Objective Assessments Start: 01/26/22 07:28 Freq: NEEDED Status: Active Protocol: Document 01/26/22 09:50 AB (Rec: 01/26/22 12:58 AB [email or web address]) Orientation Orientation/Cognition Level of Alertness Alert Orientation Name,Place,Situation Language Function Ability No Deficits Noted Safety Awareness Decreased Safety Awareness Memory Description No Deficits Noted Gross Range of Motion Lower Extremity ROM Impairments R knee flexion: ~ 50 deg Strength Lower Extremity Strength Assessment Left Impaired Hip 4-/5 Knee 3+/5 Coordination Assessment Gross Coordination Gross Coordination WNL Sensation Assessment Sensation Gross Sensation WNL Muscle Tone Muscle Tone WNL Yes M6 PT-IP Treatment Start: 01/26/22 07:28 Freq: NEEDED Status: Active Protocol: Document 01/26/22 13:30 KS (Rec: 01/26/22 14:01 KS [id number]) Physical Therapy Treatment Education Education Provided Precautions,Weight Bearing Status,Post-Op Packet,Safety Other Treatments Other Treatment Performed Complete caregiver training w/ pts son. M7 PT-IP Assessment and Plan Start: 01/26/22 07:28 Freq: NEEDED Status: Active Protocol: Document 01/26/22 13:30 KS (Rec: 01/26/22 14:01 KS [id number]) PT Summary Assessment and Plan Potential Rehabilitation Potential Good Status of Condition at Evaluation Stable Summary Impairments Pain,ROM,Strength,Balance, Coordination,Sensation,Tone, Cognition,Bed Mobility, Transfers,Gait,Activity Tolerance Assessment Summary Completed caregiver trianing w / pts son who was able to apply gait belt and sushma tpt w/ transfer, ambulation, and platofmr step as needed. Pt amblated 80 ft and ascended/ descended platform step x2 w/ FWW and CGA w/ cues for leg sequencing. He feels safe to return home and has DME. He will benefit from outpatient rehab to improve strength, ROM , and gait. Goals Bed Mobility Goal Independent Transfer Goal Independent,Front Wheeled Walker Gait Goal Independent,Front Wheel Walker Gait Distance 200 Other Goals up/down 1 steps using FWW SBA Days to Meet Goals 5 Frequency of Treatment Frequency Of Treatment Twice a Day Treatment Plan Physical Therapy Treatment Plan Bed Mobility Training,Transfer Training,Gait Training, Therapeutic Exercise,Balance Retraining,Post Op Education, Discharge Planning,Hot or Cold Pack,Neuromuscular Re-ed, Coordination Retraining,Manual Therapy Weight Bearing Status Weight Bearing Status Weight Bear as Tolerated Allowed Weight Bearing Amount (enter % RLE WBAT or #) (%) Recommendations To Nursing Amount of Assist Needed 1 Person Assist Discharge Recommendations PT Discharge Recommendations Home with Assistance, Outpatient PT Transportation Needs at Discharge Private Vehicle
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
== END 2022-01-26 14:22 | disposition home or self-care (01) ==
LOC: OR 10:26 → AC 10:26
PROVIDERS: PCP Internal Medicine; Referring Provider Orthopaedic Surgery; Visit Provider Orthopaedic Surgery
PROC: 0SRC0JZ Replacement of Right Knee Joint with Synthetic Substitute, Open Approach (ICD-10-PCS; CPT 27447; principal; 2022-01-25 14:30)
DX: M17.11 Unilateral primary osteoarthritis, right knee (principal); D50.0 Iron deficiency anemia secondary to blood loss (chronic); F11.20 Opioid dependence, uncomplicated
CPT/HCPCS: 27447; 36415; 73560; 85014; 85018; 97116; 97161; 97530; C1776; C1713; C9290; J0690; J1100; J1170; J2250; J2274; J2405; J2704; J3010

== ENCOUNTER → 2022-08-03 12:27 | Outpatient (CLI) | payer OTHER, SELFPAY ==
[2022-01-25 14:32] VITALS: BMI 27.8
--- NOTE | 2022-08-03 12:30 | DI.CT.S_ITS ---
PROCEDURE: CT CHEST ABD PEL WO CON INDICATIONS: renal cell carcinoma TECHNIQUE: After the administration of oral contrast, 5 mm thick sections acquired from the lung apices to the symphysis pubis. 5 mm thick coronal and sagittal reformats acquired, with additional 7 mm coronal MIP reformats through the lungs. For radiation dose reduction, the following was used: automated exposure control, adjustment of mA and/or kV according to patient size. COMPARISON: [facility], CT, CT CHEST ABD PEL WO CON, 08/04/2021, 10:44. FINDINGS: Image quality: adequate. CHEST: Lungs and pleura: No large/highly suspicious pulmonary nodule or mass. No consolidation. No pleural effusions or pneumothorax. Mediastinum: Multivessel coronary artery calcifications and/or stents. No pericardial effusion. No mediastinal adenopathy by CT size criteria. 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 Esophagus is normal in caliber. Chest wall: No axillary or supraclavicular adenopathy by size criteria. ABDOMEN: Solid organs: Liver is normal in size. Multiple liver cysts are present as before. Gallbladder is unremarkable . Pancreas is normal in contours. Spleen is normal in size. Left adrenal gland is not definitively visualized, may be surgically absent. No right adrenal nodule visualized. Prior left nephrectomy. No suspicious findings visualized in the nephrectomy bed. Multiple right renal cortical cysts redemonstrated. No right hydronephrosis. Peritoneum and bowel: No evidence of mechanical small bowel obstruction. No free air or substantial free fluid. Severe predominantly sigmoid colonic diverticulosis without evidence of acute diverticulitis. Nodes and vessels: No retroperitoneal or mesenteric adenopathy by size criteria. Aorta and inferior vena cava are normal in size. PELVIS: Genitourinary: Bladder wall thickness is normal. Bilateral hydroceles, partially imaged. Miscellaneous: No adenopathy. Bones: Multilevel degenerative change of the visualized spine. IMPRESSION: 1. No definite evidence of metastatic disease identified within the chest, abdomen, or pelvis on this noncontrast exam. 2. 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 Dictated by: Pete Blackburn M.D. on 08/03/2022 at 15:37 Approved by: Pete Blackburn M.D. on 08/03/2022 at 16:06
== END ==
PROVIDERS: PCP Internal Medicine; Referring Provider Internal Medicine Hematology & Oncology; Visit Provider Internal Medicine Hematology & Oncology
DX: C64.9 Malignant neoplasm of unspecified kidney, except renal pelvis (principal); I77.810 Thoracic aortic ectasia; K76.89 Other specified diseases of liver; N43.3 Hydrocele, unspecified; N28.1 Cyst of kidney, acquired; K57.30 Diverticulosis of large intestine without perforation or abscess without bleeding; Z90.5 Acquired absence of kidney
CPT/HCPCS: 71250; 74176

== ENCOUNTER → 2023-03-29 12:40 | Outpatient (CLI) | payer OTHER, SELFPAY ==
[2022-01-25 14:32] VITALS: BMI 27.8
[2023-03-29 15:00] LABS: Alanine Aminotransferase 21 IU/L (<50); Albumin 3.9 g/dL (3.5-5.0); Albumin Globulin Ratio 1.6 (1.0-2.8); Alkaline Phosphatase 69 U/L (38-126); Aspartate Aminotransferase 33 IU/L (17-59); BUN Creatinine Ratio 12.2 (6-22); Bilirubin Total 0.7 mg/dL (0.2-1.3); Blood Urea Nitrogen 18 mg/dL (9-20); Calcium 8.9 mg/dL (8.4-10.2); Carbon Dioxide 25 mmol/L (22-32); Chloride 103 mmol/L (98-107); Cholesterol 192 mg/dL (140-199); Estimated Glomerular Filt Rate 48 mL/min (>60); Globulin 2.4 g/dL (1.7-4.1); Glucose 88 mg/dL (80-110); HDL Cholesterol 72 mg/dL (40-60); HEMOLYSIS < 15 (0-50); LDL Cholesterol Calculated 98 mg/dL (<100); Potassium 5.2 mmol/L (3.4-5.1); Sodium 137 mmol/L (137-145); Total Protein 6.3 g/dL (6.3-8.2); Triglycerides 109 mg/dL (35-150)
== END ==
PROVIDERS: PCP Internal Medicine; Referring Provider Internal Medicine; Visit Provider Internal Medicine
DX: E78.2 Mixed hyperlipidemia (principal); I10 Essential (primary) hypertension; Z90.5 Acquired absence of kidney
CPT/HCPCS: 80053; 80061

== ENCOUNTER → 2023-05-11 06:12 | Outpatient (CLI) | payer OTHER, SELFPAY ==
[2022-01-25 14:32] VITALS: BMI 27.8
--- NOTE | 2023-05-11 06:13 | DI.ECHO.S_ITS ---
[facility] +---------+ [facility] +---------+ : : [address] : : : : [id number] : : : : Phone: [phone] Echocardiogram Report + + :Name: TAMMY GARY Study Date: 05/11/2023 Height: 71 in : :[facility] ReadingLocation: Weight: 200 lb : : Gender: Male BSA: 2.1 m2 : :: 1940 Age: 82 yrs BP: 144/89 mmHg: :Reason For Study: OTHER SPECIFIED DISORDERS OF ARTERIES AND : :ARTERIOLS : :Ordering Physician: MADELINE, : :JOSE L Performed By: Keiko Garcia : :Referring: JOSE L DOMINGUEZ : + + Interpretation Summary 1) Normal left ventricular thickness, size, wall motion, and systolic function (EF 55-60%). 2) The right ventricle is mildly dilated. The right ventricular systolic function is normal. 3) There is mild mitral regurgitation. There is mild aortic regurgitation. 4) The aortic root is mildly dilated at 4.4cm. The ascending aorta is mildly enlarged at 4.3cm. 5) No prior Echo available for comparison. Procedure: A two-dimensional transthoracic echocardiogram with color flow and Doppler was performed. The study quality was technically adequate. The patient had an echocardiogram, but there is no comparison study available. The patient was in sinus bradycardia with heart rates between 52-56 bpm during the exam. Left Ventricle: The left ventricle is normal in size. Proximal septal thickening is noted. Left ventricular wall thickness is normal. The ejection fraction is estimated to be 55-60%. Left ventricular systolic function appears normal without focal wall motion abnormalities. Diastolic parameters suggest a relaxation abnormality of the left ventricle, consistent with probable normal filling pressures. Right Ventricle: The right ventricle is mildly dilated. The right ventricular systolic function is normal. Atria: The left atrial size is normal. Right atrial size is normal. There is no Doppler evidence for an interatrial shunt. Mitral Valve: There is mild to moderate mitral annular calcification. The mitral valve leaflets appear mildly thickened, but open well. There is mild mitral regurgitation. Aortic Valve: The aortic valve is trileaflet. There is mild aortic valve sclerosis. There is no aortic valve stenosis. There is mild aortic regurgitation. Tricuspid Valve: The tricuspid valve is normal in structure and function. There is trace tricuspid regurgitation. Pulmonary artery pressures cannot be estimated because of the lack of a measurable TR jet velocity. Pulmonic Valve: The pulmonic valve leaflets are thin and pliable; valve motion is normal. There is mild to moderate pulmonic regurgitation. Great Vessels: The aortic root is mildly dilated. The ascending aorta is mildly enlarged. The IVC is of normal diameter and collapses greater than 50% with a sniff. This suggests a low right atrial pressure of 3 mm Hg. Pericardium/ Pleura There is no pericardial effusion. There is no pleural effusion. MMode/2D Measurements & Calculations LVIDd: 5.0 cm LVOT diam: 2.3 cm LVIDs: 3.4 cm Ao root diam: 4.4 cm FS: 31.3 % asc Aorta Diam: 4.3 cm EPSS: 0.98 cm Ao Arch Diam (Prox Trans): 2.8 cm IVSd: 0.94 cm LVPWd: 0.96 cm LV rincon. diameter/BSA (cm/m^2): 2.4 LV sys. diameter/BSA (cm/m^2): 1.6 LA A2 area: 23.5 cm2 RA long axis: 5.0 cm LA A4 area: 17.1 cm2 RA area: 13.1 cm2 LA length (vol): 5.2 cm RA vol: 29.4 ml LA vol: 65.0 ml RA : 14.0 ml/m2 LA vol index: 30.8 ml/m2 IVC diam: 1.4 cm RVD1 (basal): 4.4 cm RVD2 (mid): 3.6 cm TAPSE: 2.9 cm Doppler Measurements & Calculations Ao V2 max: 130.3 cm/sec LVOT Max Keny: 101.7 cm/sec Ao V2 mean: 96.3 cm/sec LV V1 max P.1 mmHg Ao max P.8 mmHg LV V1 VTI: 24.4 cm Ao mean P.0 mmHg TY(I,D): 3.0 cm2 Ao V2 VTI: 34.5 cm TY(V,D): 3.3 cm2 sev ratio: 0.71 TY indexed to BSA (cm^2/m^2): 1.4 MV E max keny: 88.8 cm/sec PA V2 max: 83.6 cm/sec MV A max keny: 102.6 cm/sec PA V2 mean: 54.2 cm/sec MV E/A: 0.86 PA mean P.4 mmHg Med Peak E' Keny: 5.8 cm/sec E/E' med: 15.4 Lat Peak E' Keny: 8.4 cm/sec E/E' lat: 10.5 E/e' average: 13.0 MV dec time: 0.24 sec SV(OT): 104.5 ml Reading Physician:10:23 AM
== END ==
PROVIDERS: PCP Internal Medicine; Referring Provider Internal Medicine Cardiovascular Disease; Visit Provider Internal Medicine Cardiovascular Disease
DX: I77.810 Thoracic aortic ectasia (principal); I08.0 Rheumatic disorders of both mitral and aortic valves; I77.89 Other specified disorders of arteries and arterioles
CPT/HCPCS: 93306

== ENCOUNTER → 2023-07-25 10:31 | Outpatient (CLI) | payer OTHER, SELFPAY ==
[2022-01-25 14:32] VITALS: BMI 27.8
--- NOTE | 2023-07-25 10:32 | DI.CT.S_ITS ---
PROCEDURE: CT CHEST ABD PEL WO CON INDICATIONS: follow up, surveillance TECHNIQUE: After the administration of oral contrast, 5 mm thick sections acquired from the lung apices to the symphysis pubis. 5 mm thick coronal and sagittal reformats acquired, with additional 7 mm coronal MIP reformats through the lungs. For radiation dose reduction, the following was used: automated exposure control, adjustment of mA and/or kV according to patient size. COMPARISON: [facility], CT, CT CHEST ABD PEL WO CON, 08/03/2022, 14:05. FINDINGS: Image quality: Excellent. CHEST: Lungs and pleura: No acute pulmonary opacities. No pleural effusions or pneumothorax. Central and peripheral airways are patent are normal in caliber. Mediastinum: Heart size is normal. No pericardial effusion. No mediastinal adenopathy by CT size criteria. Mild dilation of the ascending aorta, measuring 4.4 centimeters, grossly unchanged. Esophagus is normal in caliber. No hiatal hernia. Coronary artery calcifications and stents. Chest wall: No axillary or supraclavicular adenopathy by size criteria. Thyroid gland is unremarkable . ABDOMEN: Liver: Multi-cystic. Gallbladder and biliary tree: No gallstones or biliary dilation. Spleen: Normal size. Pancreas: No ductal dilation. Adrenal glands: No adrenal nodules. Kidneys: Left nephrectomy. Similar cystic lesions with low attenuation, favoring benign cysts. Hemorrhagic cyst on the posterior margin measuring 1.7 centimeters, benign by Hounsfield unit criteria. Peritoneum and bowel: Small and large bowel loops are normal in caliber and wall thickness. No free fluid or air. Colonic diverticulosis without evidence of diverticulitis. Nodes and vessels: No retroperitoneal or mesenteric adenopathy by size criteria. Aorta and inferior vena cava are normal in size. Miscellaneous: No ventral hernias. PELVIS: Genitourinary: Bladder wall thickness is normal. Large testicular hydroceles. Miscellaneous: No inguinal hernias or adenopathy. Bones: No suspicious bony lesions. Unchanged compression deformity of the T3 vertebral body. Healed sternal fracture. Degenerative disc disease. IMPRESSION: Left nephrectomy without evidence of metastatic disease. 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 Dictated by: Rasheed Herrera M.D. on 07/25/2023 at 12:15 Approved by: Rasheed Herrera M.D. on 07/25/2023 at 12:20
== END ==
PROVIDERS: PCP Internal Medicine; Referring Provider Internal Medicine Hematology & Oncology; Visit Provider Internal Medicine Hematology & Oncology
DX: C64.9 Malignant neoplasm of unspecified kidney, except renal pelvis (principal); N43.3 Hydrocele, unspecified; I77.810 Thoracic aortic ectasia; Z90.5 Acquired absence of kidney
CPT/HCPCS: 71250; 74176

== ENCOUNTER → 2024-01-12 15:15 | Outpatient (CLI) | payer OTHER, SELFPAY ==
[2022-01-25 14:32] VITALS: BMI 27.8
[2024-01-12 16:30] LABS: Alanine Aminotransferase 21 IU/L (<50); Albumin 3.9 g/dL (3.5-5.0); Alkaline Phosphatase 79 U/L (38-126); Aspartate Aminotransferase 35 IU/L (17-59); BUN Creatinine Ratio 15.9 (6-22); Bilirubin Total 0.6 mg/dL (0.2-1.3); Blood Urea Nitrogen 21 mg/dL (9-20); Calcium 9.2 mg/dL (8.4-10.2); Carbon Dioxide 24 mmol/L (22-32); Chloride 109 mmol/L (98-107); Estimated Glomerular Filt Rate 54 mL/min (>60); Glucose 89 mg/dL (80-110); HEMOLYSIS < 15 (0-50); Potassium 4.7 mmol/L (3.4-5.1); Sodium 139 mmol/L (137-145); Total Protein 5.9 g/dL (6.3-8.2)
== END ==
PROVIDERS: PCP Internal Medicine; Referring Provider Internal Medicine; Visit Provider Internal Medicine
DX: Z90.5 Acquired absence of kidney (principal); I10 Essential (primary) hypertension; E78.2 Mixed hyperlipidemia
CPT/HCPCS: 36415; 80053

== ENCOUNTER → 2024-07-23 12:06 | Outpatient (CLI) | payer OTHER, SELFPAY ==
[2022-01-25 14:32] VITALS: BMI 27.8
--- NOTE | 2024-07-23 | DI.MRI.S_ITS ---
PROCEDURE: MR CERVICAL SPINE WO CON INDICATIONS: CERVICAL STENOSIS OF SPINAL CANAL TECHNIQUE: Noncontrast sagittal T1 spin echo and T2 fast spin echo, sagittal STIR, foraminal oblique sagittal T2 fast spin echo, and axial gradient echo or T2 fast spin echo through the cervical spine. COMPARISON: None. FINDINGS: Image quality: Excellent Straightening of the cervical spine. Mild anterolisthesis C3 on C4, C4 on C5. Mild retrolisthesis of C5 on C6, C6 on C7. Mild anterolisthesis C7 on T1. Mild superior endplate fracture of T1, without marrow edema, chronic. Vertebral body height of the cervical spine are well maintained. Multilevel disc desiccation disc bulge. Marrow signal of the cervical spine is normal for age. Core signal: Unremarkable Right neural foraminal stenosis: Severe at C3-4, mild at C4-5, moderate at C5-6, mild at C6-7. Left neural foraminal stenosis: Mild at C5-6. Moderate at C6-7. Moderate at C7-T1. Axial images: C2-C3: Moderate bilateral facet arthropathy. No central canal stenosis. C3-C4: Posterior disc uncovering. Uncal vertebral arthropathy. Severe bilateral facet arthropathy. Mild central canal stenosis. C4-5: Posterior disc uncovering. Severe right facet arthropathy. No central canal stenosis. C5-6: Posterior disc osteophyte complex. Mild to moderate central canal stenosis. Uncovertebral arthropathy. Mild bilateral facet arthropathy. C6-7: Posterior disc osteophyte complex. No central canal stenosis. Uncovertebral and bilateral facet arthropathy. C7-T1: Posterior disc uncovering. Moderate bilateral facet arthropathy. Moderate degenerative changes of the left costovertebral junction. No central canal stenosis. Other soft tissue findings: Unremarkable IMPRESSION: Multilevel degenerative changes of the cervical spine, most pronounced at C5-6, where there is mild to moderate central canal stenosis, and moderate right, and mild left neural foraminal stenosis. Dictated by: Anisha Sesay M.D. on 07/23/2024 at 14:37 Approved by: Anisha Sesay M.D. on 07/23/2024 at 14:49
== END ==
PROVIDERS: PCP Internal Medicine; Referring Provider Orthopaedic Surgery Orthopaedic Surgery of the Spine; Visit Provider Orthopaedic Surgery Orthopaedic Surgery of the Spine
DX: M48.02 Spinal stenosis, cervical region (principal); M47.812 Spondylosis without myelopathy or radiculopathy, cervical region
CPT/HCPCS: 72141

== ENCOUNTER → 2024-07-29 14:02 | Outpatient (CLI) | payer OTHER, SELFPAY ==
[2022-01-25 14:32] VITALS: BMI 27.8
[2024-07-29 14:48] LABS: Add Manual Diff / Slide Review NO; Basophils Absolute Auto 100 /uL (0-100); Eosinophils Absolute Auto 400 /uL (0-450); Eosinophils Percent Auto 5.1 % (2-4); Hematocrit 41.9 % (41-53); Lymphocytes Absolute Auto 2500 /uL (1100-4500); Lymphocytes Percent Auto 28.9 % (25-40); Mean Corpuscular HGB Conc 33.3 % (30-36); Mean Corpuscular Hemoglobin 30.4 PG (26-34); Mean Corpuscular Volume 91.3 fL (80-100); Monocytes Absolute Auto 700 /uL (0-900); Monocytes Percent Auto 7.8 % (3-14); Neutrophils Absolute Auto 5000 /uL (1500-7000); Neutrophils Percent Auto 57.2 % (50-75); Platelet Count 266 X10^3/uL (150-400); Red Blood Cell Count 4.59 X10^6/uL (4.5-5.9); Red Cell Distribution Width 14.2 % (11.6-14.8); White Blood Cell Count 8.8 X10^3/uL (4.5-11.0)
[2024-07-29 15:09] LABS: Alanine Aminotransferase 23 IU/L (<50); Albumin 3.9 g/dL (3.5-5.0); Albumin Globulin Ratio 1.5 (1.0-2.8); Alkaline Phosphatase 81 U/L (38-126); Amylase 90 U/L (30-110); Aspartate Aminotransferase 42 IU/L (17-59); BUN Creatinine Ratio 12.3 (6-22); Bilirubin Total 0.6 mg/dL (0.2-1.3); Blood Urea Nitrogen 18 mg/dL (9-20); Calcium 9.7 mg/dL (8.4-10.2); Carbon Dioxide 29 mmol/L (22-32); Chloride 104 mmol/L (98-107); Estimated Glomerular Filt Rate 47 mL/min (>60); Globulin 2.6 g/dL (1.7-4.1); Glucose 99 mg/dL (80-110); HEMOLYSIS < 15 (0-50); Lipase 172 U/L (23-300); Potassium 4.5 mmol/L (3.4-5.1); Sodium 136 mmol/L (137-145); Total Protein 6.5 g/dL (6.3-8.2)
[2024-07-29 15:16] LABS: NT-proBNP (BNP-Adult 18+) 274 pg/mL (<450)
== END ==
PROVIDERS: PCP Internal Medicine; Referring Provider Internal Medicine; Visit Provider Internal Medicine
DX: I10 Essential (primary) hypertension (principal); R10.12 Left upper quadrant pain; R09.02 Hypoxemia
CPT/HCPCS: 36415; 80053; 82150; 83690; 83880; 85025

== ENCOUNTER → 2024-07-29 15:44 | Outpatient (CLI) | payer OTHER, SELFPAY ==
[2022-01-25 14:32] VITALS: BMI 27.8
--- NOTE | 2024-07-29 15:45 | DI.RAD.S_ITS ---
PROCEDURE: XR CHEST 2V INDICATIONS: hypoxia TECHNIQUE: 2 views of the chest were acquired. COMPARISON: [facility], , CHEST 2 VIEW, 12/20/2016, 13:57. FINDINGS: Surgical changes and devices: None. Lungs and pleura: No interval change. There is a persistent hazy opacity in the left lung base which is unchanged. No pleural effusions or pneumothorax. Mediastinum: Mediastinal contours are normal. Heart size is normal. Bones and chest wall: No suspicious bony abnormalities. Soft tissues appear unremarkable. IMPRESSION: No acute cardiopulmonary abnormality is seen. Dictated by: Luan Soriano M.D. on 07/30/2024 at 8:26 Approved by: Luan Soriano M.D. on 07/30/2024 at 8:32
== END ==
PROVIDERS: PCP Internal Medicine; Referring Provider Internal Medicine; Visit Provider Internal Medicine
DX: I10 Essential (primary) hypertension (principal); R10.12 Left upper quadrant pain; R09.02 Hypoxemia
CPT/HCPCS: 36415; 71046; 80053; 82150; 83690; 83880; 85025

== ENCOUNTER → 2024-08-07 08:28 | Outpatient (CLI) | payer OTHER, SELFPAY ==
[2022-01-25 14:32] VITALS: BMI 27.8
[2024-08-07 09:09] LABS: Hematocrit 40.2 % (41-53); Hemoglobin 13.4 g/dL (13.5-17.5); Mean Corpuscular HGB Conc 33.3 % (30-36); Mean Corpuscular Hemoglobin 30.2 PG (26-34); Mean Corpuscular Volume 90.9 fL (80-100); Platelet Count 224 X10^3/uL (150-400); Red Blood Cell Count 4.42 X10^6/uL (4.5-5.9); Red Cell Distribution Width 14.5 % (11.6-14.8); White Blood Cell Count 7.6 X10^3/uL (4.5-11.0)
[2024-08-07 09:42] LABS: BUN Creatinine Ratio 12.6 (6-22); Blood Urea Nitrogen 17 mg/dL (9-20); Calcium 9.5 mg/dL (8.4-10.2); Carbon Dioxide 26 mmol/L (22-32); Chloride 108 mmol/L (98-107); Cholesterol 153 mg/dL (140-199); Estimated Glomerular Filt Rate 52 mL/min (>60); Glucose 97 mg/dL (80-110); HDL Cholesterol 78 mg/dL (40-60); HEMOLYSIS < 15 (0-50); LDL Cholesterol Calculated 57 mg/dL (<100); Potassium 4.8 mmol/L (3.4-5.1); Sodium 139 mmol/L (137-145); Triglycerides 91 mg/dL (35-150)
== END ==
PROVIDERS: PCP Internal Medicine; Referring Provider Internal Medicine Cardiovascular Disease; Visit Provider Internal Medicine Cardiovascular Disease
DX: E78.5 Hyperlipidemia, unspecified (principal); I10 Essential (primary) hypertension
CPT/HCPCS: 36415; 80048; 80061; 85027

== ENCOUNTER → 2024-09-03 10:42 | Outpatient (CLI) | payer OTHER, SELFPAY ==
[2022-01-25 14:32] VITALS: BMI 27.8
--- NOTE | 2024-09-03 10:43 | DI.MRI.S_ITS ---
PROCEDURE: MR LUMBAR SPINE WO CON INDICATIONS: spinal stenosis TECHNIQUE: Noncontrast sagittal T1 spin echo and T2 fast echo, sagittal STIR, and T2 fast spin echo through the lumbar spine. In cases with scoliosis, additional coronal T2 fast spin echo may be performed. COMPARISON: None. FINDINGS: Image quality: Excellent. Alignment and Curvature: Levocurvature of the lumbar spine. Straightening of the normal lumbar lordosis. Bone Marrow: Multilevel degenerative endplate changes. Marrow is of normal overall signal. No acute vertebral body compression fractures. Spinal Cord: Conus medullaris terminates at the L1 level. Visualized cord demonstrates normal signal and size. Paraspinous Soft Tissues: No paravertebral masses. Left kidney is not visualized. T12-L1: Disc desiccation and mild height loss. Mild diffuse disc bulge. Facet arthropathy. No significant central canal stenosis. No neural foraminal stenosis. L1-L2: Disc desiccation and moderate height loss. Diffuse disc bulge. Facet arthropathy and thickening of ligamentum flavum. Mild central canal stenosis. Mild bilateral neural foraminal stenosis. L2-L3: Disc desiccation and severe disc height loss. Diffuse disc bulge. Facet arthropathy and thickening of ligamentum flavum. Mild to moderate central canal stenosis. Mild bilateral neural foraminal stenosis. L3-L4: Disc desiccation and moderate height loss. Facet arthropathy and thickening of ligamentum flavum. Diffuse disc bulge. Moderate to severe central canal stenosis. Moderate right and mild left neural foraminal stenosis. L4-L5: Disc desiccation and moderate height loss. Diffuse disc bulge. Facet arthropathy and thickening of ligamentum flavum. Moderate central canal stenosis. Moderate to severe left and mild right neural foraminal stenosis. L5-S1: Disc desiccation is severe height loss. Mild disc bulge. Facet arthropathy. No central canal stenosis. Moderate to severe bilateral neural foraminal stenosis. IMPRESSION: 1. Multilevel degenerative changes of the lumbar spine as described above. 2. Moderate to severe central canal stenosis at L3-L4. Moderate central canal stenosis at L4-5. 3. Moderate to severe neural foraminal stenosis on the left at L4-5 and bilaterally at L5-S1. Dictated by: Eulogio Dos Santos M.D. on 09/03/2024 at 13:47 Approved by: Eulogio Dos Santos M.D. on 09/03/2024 at 13:52
== END ==
PROVIDERS: PCP Internal Medicine; Referring Provider Physical Medicine & Rehabilitation Pain Medicine; Visit Provider Physical Medicine & Rehabilitation Pain Medicine
DX: M48.061 Spinal stenosis, lumbar region without neurogenic claudication (principal); M48.07 Spinal stenosis, lumbosacral region; M47.816 Spondylosis without myelopathy or radiculopathy, lumbar region; M47.817 Spondylosis without myelopathy or radiculopathy, lumbosacral region; M51.369 Other intervertebral disc degeneration, lumbar region without mention of lumbar back pain or lower extremity pain; M51.379 Other intervertebral disc degeneration, lumbosacral region without mention of lumbar back pain or lower extremity pain
CPT/HCPCS: 72148

== ENCOUNTER → 2024-10-29 11:22 | Outpatient (CLI) | payer OTHER, SELFPAY ==
[2022-01-25 14:32] VITALS: BMI 27.8
--- NOTE | 2024-10-29 11:24 | DI.RAD.S_ITS ---
PROCEDURE: XR KNEE LT 4V INDICATIONS: Left knee pain; suspect OA TECHNIQUE: 3 views of the knee were acquired. COMPARISON: [facility], CR, XR KNEE RT 1TO2V, 01/25/2022, 13:56. FINDINGS: Bones: No fractures or dislocations. No suspicious bony lesions. Advanced medial compartment joint space narrowing with subchondral sclerosis and medial osteophyte. Rounded calcifications adjacent to the medial patella is noted particularly on the patellar sunrise view. Moderate patellofemoral joint space narrowing Soft tissues: No joint effusion. No suspicious soft tissue calcifications. IMPRESSION: Advanced osteoarthritis with possible loose bodies measuring up to 1.2 cm Approved by: Serjio Rios M.D. on 10/29/2024 at 20:02
== END ==
PROVIDERS: PCP Internal Medicine; Referring Provider Physician Assistant; Visit Provider Physician Assistant
DX: M25.562 Pain in left knee (principal); M17.12 Unilateral primary osteoarthritis, left knee
CPT/HCPCS: 73562

== ENCOUNTER → 2024-12-18 15:55 | Outpatient (CLI) | payer OTHER, SELFPAY ==
[2022-01-25 14:32] VITALS: BMI 27.8
--- NOTE | 2024-12-18 15:57 | DI.US.S_ITS ---
PROCEDURE: US PERIPH VENOUS LOW EXTREM LT INDICATIONS: LEFT POP LALITA LUMP TECHNIQUE: Real-time imaging, as well as color and pulse Doppler interrogation, were performed of the lower extremity deep veins from the inguinal ligament to the popliteal fossa, with documentation of the visualized calf veins. COMPARISON: [facility], CR, XR KNEE LT 4V, 10/29/2024, 11:24. FINDINGS: The common femoral, femoral, popliteal, and the visualized calf veins are normally compressible, and free of intraluminal thrombus. Color and pulse Doppler demonstrate normal phasic intraluminal flow. There is normal augmentation response to distal compression maneuver. There is a complex partially solid lesion seen within the left popliteal fossa without abnormal vascularity measuring 8.4 x 7.1 x 7.3 cm. IMPRESSION: No findings of lower extremity deep venous thrombosis. Within the left popliteal fossa, there is a complex nonvascular lesion, most likely related to a hematoma, based upon the imaging appearance. Dictated by: Sonido Melchor M.D. on 12/18/2024 at 15:33 Approved by: Sonido Melchor M.D. on 12/18/2024 at 15:34
== END ==
PROVIDERS: PCP Internal Medicine; Referring Provider Orthopaedic Surgery Adult Reconstructive Orthopaedic Surgery; Visit Provider Orthopaedic Surgery Adult Reconstructive Orthopaedic Surgery
DX: M17.12 Unilateral primary osteoarthritis, left knee (principal); R22.42 Localized swelling, mass and lump, left lower limb
CPT/HCPCS: 93971

== ENCOUNTER → 2025-02-26 16:44 | Outpatient (CLI) | payer OTHER, SELFPAY ==
[2022-01-25 14:32] VITALS: BMI 27.8
[2025-02-26 17:47] LABS: Alanine Aminotransferase 25 IU/L (<50); Albumin 4.3 g/dL (3.5-5.0); Albumin Globulin Ratio 1.6 (1.0-2.8); Alkaline Phosphatase 66 U/L (38-126); Aspartate Aminotransferase 36 IU/L (17-59); BUN Creatinine Ratio 12.5 (6-22); Bilirubin Total 0.5 mg/dL (0.2-1.3); Blood Urea Nitrogen 17 mg/dL (9-20); Calcium 9.4 mg/dL (8.4-10.2); Carbon Dioxide 27 mmol/L (22-32); Chloride 106 mmol/L (98-107); Estimated Glomerular Filt Rate 52 mL/min (>60); Globulin 2.7 g/dL (1.7-4.1); Glucose 108 mg/dL (70-99); HEMOLYSIS < 15 (0-50); Sodium 139 mmol/L (137-145)
== END ==
PROVIDERS: PCP Internal Medicine; Referring Provider Internal Medicine; Visit Provider Internal Medicine
DX: I10 Essential (primary) hypertension (principal); C64.9 Malignant neoplasm of unspecified kidney, except renal pelvis
CPT/HCPCS: 36415; 80053

== ENCOUNTER 2025-05-14 08:34 | Outpatient (CLI) | payer OTHER, SELFPAY ==
[2022-01-25 14:32] VITALS: BMI 27.8
[2025-05-14 09:30] VITALS: BP 128/77; PULSE 60; RESP 16; TEMP 36.1; O2SAT 93
[2025-05-14 09:52] VITALS: BP 165/91; PULSE 58; RESP 17
[2025-05-14] MEDS: LIDOCAINE 1% (PF) 5 ML INJ (09:58)
[2025-05-14 10:05] VITALS: BP 130/72; PULSE 62; RESP 16; O2SAT 96
--- NOTE | 2025-05-14 12:34 | PM.PROC.IR.1 ---
Date/Time/Diagnoses Date of procedure: 04/09/25 Time of procedure: 09:30 Pre-procedure diagnosis: Lumbar stenosis with neurogenic claudication, radiculopathy Post-procedure diagnosis: same Procedure Notes Procedure: Interlaminar epidural steroid injection L5-S1 Indications: Lumbar stenosis with neurogenic claudication, radiculopathy Physician: Abdiel Lees Total sedation minutes: 0 Complications: none Procedure in detail & Post-procedure care: Patient is here for the planned procedure today as noted. No significant change since the last office visit. For additional clinical scenario please see those office notes. Focused exam: Vital signs reviewed as charted on intake. Gen: Well developed. No acute distress. CV: RRR, no M/R/G Chest: Non-labored breathing, CTAB. Psych: Alert and well-oriented. Mood/Affect: normal. Patient suitable for the planned procedure today: Yes === The following procedure was performed in the office today: Lumbar Epidural Steroid Injection with fluoroscopic guidance - Interlaminar approach (86363) Levels Treated: [L5-S1] Approach: interlaminar Soft tissue: [1% lidocaine 2 mL] Test dose: [1% lidocaine 1 mL] Injectate: 0.75 mL of Depo-Medrol (80mg/mL) in 1.25 mL 1% lidocaine and 1.5 mL normal saline Fluoroscopy Agent: [Omnipaque-300 1.5 mL] Notes: Midline targeted. 3.5 in 20 gauge Touhy needle utilized and adequate. Preprocedure pain 7/10, postprocedure pain 5/10. Procedure: After discussing the risks, benefits, and alternatives to the procedure, the patient expressed understanding and wished to proceed. The risks include but are not limited to infection, allergic reaction, nerve damage, stroke, paralysis, epidural hematoma, syncope, headache, respiratory or cardiac arrest, spinal cord injury, and scar formation. Informed consent was obtained and all patient questions were answered. The patient was brought to the procedure suite and placed in the prone position. A pre-procedural pause was conducted to verify: correct patient identity, procedure to be performed and as applicable, correct side and site, correct patient position, and any special requirements. Using a paramedian approach from the side noted above, the region overlying the target was localized under fluoroscopic visualization and the soft tissues overlying this structure were infiltrated with the anesthetic listed above. With fluoroscopic guidance, a #20 gauge Tuohy needle (unless otherwise noted) was inserted into the epidural space using a paramedian approach. The epidural space was localized utilizing intermittent multiplanar fluoroscopic guidance and loss of resistance technique. After negative aspiration, the contrast noted above was injected into the epidural space and the flow of contrast was observed, confirming epidural spread without evidence of intravascular or intrathecal spread. Multi-planar radiographs were obtained for documentation purposes. A test dose of lidocaine was injected into the above noted epidural space, and the patient was observed for 30-60 seconds. No sensory deficits were reported and normal lower extremity motor function was noted. Subsequently, the injectate as noted above was administered into the level noted above. The patient tolerated the procedure well and was discharged after an appropriate period of observation. If there are any complications, the patient was instructed to call us. The patient is to follow-up with the requesting provider in 2-3 weeks. This note was compiled using voice recognition software and therefore may contain typos. Please contact the author with any questions or concerns.
== END 2025-05-14 10:10 | disposition home or self-care (01) ==
LOC: RAD 08:35
PROVIDERS: PCP Internal Medicine; Referring Provider Physical Medicine & Rehabilitation; Visit Provider Physical Medicine & Rehabilitation
DX: M48.062 Spinal stenosis, lumbar region with neurogenic claudication (principal); M54.16 Radiculopathy, lumbar region
CPT/HCPCS: 62323; J1010

== ENCOUNTER → 2025-06-17 12:32 | Outpatient (CLI) | payer OTHER, SELFPAY ==
[2022-01-25 14:32] VITALS: BMI 27.8
--- NOTE | 2025-06-17 12:34 | DI.RAD.S_ITS ---
PROCEDURE: XR HIP W PEL IF DONE LT 2V INDICATIONS: left hip pain TECHNIQUE: AP pelvis with lateral view(s) of the left hip(s). COMPARISON: None. FINDINGS: Bones: No fractures or dislocations. Pelvic ring appears intact. No suspicious bony lesions. Moderate bilateral hip osteoarthritis with osseous hypertrophy and joint space narrowing. Soft tissues: The visualized bowel gas pattern is normal. No suspicious soft tissue calcifications. IMPRESSION: Bilateral hip moderate osteoarthritis. No acute osseous lesion. If symptoms and/or clinical suspicion for pathology persists, further assessment with advanced imaging (e.g. CT, MRI or bone scan) should be considered. Dictated by: Zina Alfredo MD, PhD on 06/24/2025 at 11:52 Approved by: Zina Alfredo MD, PhD on 06/24/2025 at 11:52
== END ==
PROVIDERS: PCP Internal Medicine; Referring Provider Physical Medicine & Rehabilitation; Visit Provider Physical Medicine & Rehabilitation
DX: M25.552 Pain in left hip (principal); M16.12 Unilateral primary osteoarthritis, left hip
CPT/HCPCS: 73502

== ENCOUNTER → 2025-06-23 15:19 | Outpatient (CLI) | payer OTHER, SELFPAY ==
[2022-01-25 14:32] VITALS: BMI 27.8
--- NOTE | 2025-06-23 15:20 | DI.US.S_ITS ---
PROCEDURE: US PERIP VENOUS LOW EXTREM LT INDICATIONS: Left popliteal swelling TECHNIQUE: Real-time imaging, as well as color and pulse Doppler interrogation, were performed of the lower extremity deep veins from the inguinal ligament to the popliteal fossa, with documentation of the visualized calf veins. COMPARISON: [facility], US, US [facility] VENOUS LOW EXTREM LT, 12/18/2024, 16:06. FINDINGS: The common femoral, femoral, and proximal popliteal veins are normally compressible without intraluminal thrombus. Color and pulse Doppler demonstrate normal phasic intraluminal flow. In the medial and posterior left lower leg, there is a large, multilobulated, hypoechoic and anechoic mass which measures at least 11.6 x 7 x 6.9 cm in the left distal thigh. IMPRESSION: 1. No lower extremity deep venous thrombosis in the left common femoral, femoral, and proximal popliteal veins. 2. Posterior medial left distal thigh soft tissue mass lesion measures at least 11.6 cm. 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 Recommend MRI of the left femur and left tibia and fibula with and without contrast (this required 2 separate orders) for further evaluation. Additionally consider referral to an orthopedic oncologist for further evaluation pending MRI results. Communication: The impression was conveyed to the ordering clinican within 24 hours of the time of dictation by the [facility] Radiology Call Center staff. Dictated by: Reji Flowers M.D. on 06/23/2025 at 17:03 Approved by: Reji Flowers M.D. on 06/23/2025 at 17:31
== END ==
PROVIDERS: PCP Internal Medicine; Referring Provider Internal Medicine; Visit Provider Physical Medicine & Rehabilitation
DX: R22.32 Localized swelling, mass and lump, left upper limb (principal); M25.462 Effusion, left knee; M79.609 Pain in unspecified limb
CPT/HCPCS: 93971

== ENCOUNTER → 2025-06-26 14:54 | Outpatient (CLI) | payer OTHER, SELFPAY ==
[2022-01-25 14:32] VITALS: BMI 27.8
[2025-06-26 16:35] LABS: Blood Urea Nitrogen 12 mg/dL (9-20); Estimated Glomerular Filt Rate > 60 mL/min (>60)
== END ==
PROVIDERS: PCP Internal Medicine; Referring Provider Internal Medicine; Visit Provider Internal Medicine
DX: Z90.5 Acquired absence of kidney (principal); I10 Essential (primary) hypertension; E78.2 Mixed hyperlipidemia; C49.9 Malignant neoplasm of connective and soft tissue, unspecified
CPT/HCPCS: 36415; 82565; 84520

== ENCOUNTER → 2025-06-30 14:53 | Outpatient (CLI) | payer OTHER, SELFPAY ==
[2022-01-25 14:32] VITALS: BMI 27.8
--- NOTE | 2025-06-30 14:55 | DI.MRI.S_ITS ---
PROCEDURE: MR FEMUR LT WO/W CON INDICATIONS: mass noted on US TECHNIQUE: Noncontrast coronal T1 spin echo and STIR, sagittal T1 spin echo with fat saturation and STIR, axial T1 spin echo and T2 fast spin echo with fat saturation. After the administration of contrast, axial/sagittal/coronal T1 spin echo with fat saturation through the left thigh. COMPARISON: None. FINDINGS: Image quality: Excellent. Bones: Moderate left hip joint osteoarthritic changes are seen. Moderate tricompartmental osteoarthritis in left knee is seen. No marrow edema. No acute fracture or dislocation. No suspicious intraosseous lesion or area of abnormal intraosseous enhancement Soft tissues: There is a large lobulated and heterogeneously T1 hypointense and T2 hyperintense lesion along posterior distal femur extending to the level of femoral condyles, containing thick internal septation , and measures up to 7.3 x 6.5 x 7.8 cm in largest AP, transverse and craniocaudal dimensions series 6, image 20 and series 11, image 24. After IV contrast infusion, subtle peripheral enhancement is noted. No large solid enhancing component is identified. No other soft tissue lesion or drainable fluid collection is seen. No definite adjacent distal side muscle involvement is seen. No obvious involvement of the adjacent neurovascular bundle. A popliteal cyst is noted measures 3.2 x 2.6 cm in transverse and AP dimensions series 11, image 33. IMPRESSION: 1. Large lobulated and septated heterogeneously T1 hypointense and T2 hyperintense lesion along posterior aspect of distal femoral shaft and measures up to 7.3 x 6.5 x 7.8 cm in size with mild peripheral enhancement. 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 Consider excision or biopsy for more definitive diagnosis. 2. No enhancing solid mass or other drainable fluid collection is seen. No definite adjacent muscle or neurovascular structure involvement. 3. No suspicious intraosseous lesion or area of abnormal intraosseous enhancement. Moderate left hip and left knee joint osteoarthritis as above. No fracture or dislocation. No evidence of avascular necrosis of femoral head. Dictated by: Humberto Garcia M.D. on 07/02/2025 at 11:37 Approved by: Humberto Garcia M.D. on 07/02/2025 at 11:49
--- NOTE | 2025-06-30 14:55 | DI.MRI.S_ITS ---
PROCEDURE: MR LOWER LEG LT WO/W CON INDICATIONS: mass noted on US - left thigh TECHNIQUE: Noncontrast coronal T1 spin echo and STIR, sagittal T1 spin echo with fat saturation and STIR, axial T1 spin echo and T2 fast spin echo with fat saturation. After the administration of contrast, axial/sagittal/coronal T1 spin echo with fat saturation through the left lower leg . COMPARISON: [facility], US, US PERIPH VENOUS LOW EXTREM LT, 06/23/2025, 15:49. FINDINGS: Image quality: Excellent. Bones: Patient is status post left ankle surgery with susceptibility artifacts. Visualized portion of osseous structures shows no marrow edema. No acute fracture or dislocation. Osteoarthritic changes are noted in left knee joints. No suspicious intraosseous lesion or area of abnormal intraosseous enhancement. Soft tissues: No suspicious enhancing soft tissue mass or drainable fluid collection is seen in lower leg soft tissue. There is edema involving medial and lateral heads of gastrocnemius muscle extending to musculotendinous junction. No discrete intramuscular mass is seen. Rest of the lower leg muscles are normal in size and signal intensity. IMPRESSION: 1. Please refer to MRI of thigh for evaluation of distal thigh mass. 2. No enhancing soft tissue mass or drainable fluid collection is seen in left lower leg. 3. Suggestion of more low-grade muscle strain involving mid to distal gastrocnemius muscle. No other muscle or tendon signal abnormalities. No area of abnormal intramuscular enhancement. 4. [id number] tricompartmental osteoarthritis in left knee. Postsurgical changes in left ankle. No suspicious intraosseous lesion or abnormal intraosseous enhancement. No acute fracture or dislocation. Dictated by: Humberto Garcia M.D. on 07/02/2025 at 11:31 Approved by: Humberto Garcia M.D. on 07/02/2025 at 11:37
== END ==
LOC: MRI 14:54
PROVIDERS: PCP Internal Medicine; Referring Provider Internal Medicine; Visit Provider Internal Medicine
DX: C49.9 Malignant neoplasm of connective and soft tissue, unspecified (principal); R22.42 Localized swelling, mass and lump, left lower limb; M17.12 Unilateral primary osteoarthritis, left knee; M16.12 Unilateral primary osteoarthritis, left hip
CPT/HCPCS: 73720; A9579

== ENCOUNTER → 2025-07-24 06:28 | Outpatient (CLI) | payer OTHER, SELFPAY ==
[2022-01-25 14:32] VITALS: BMI 27.8
--- NOTE | 2025-07-24 06:29 | DI.CT.S_ITS ---
PROCEDURE: CT CHEST ABD PEL W CON INDICATIONS: mass of left lower extremity TECHNIQUE: After the administration of intravenous contrast, 5 mm thick sections acquired from the lung apices to the symphysis. 5 mm coronal and sagittal reformats were performed, with additional 7 mm MIP reformats through the lungs. For radiation dose reduction, the following was used: automated exposure control, adjustment of mA and/or kV according to patient size. COMPARISON: [facility], CT, CT CHEST ABD PEL WO CON, 07/25/2023, 11:33. [facility], CT, CT CHEST ABDOMEN WITHOUT CONTRAST, 01/21/2025, 13:38. [facility], MR, MR FEMUR LT WO/W CON, 06/30/2025, 14:54. [facility], CT, CT CHEST ABD PEL W CON, 07/25/2019, 11:48. [facility], MR, MR LOWER LEG LT WO/W CON, 06/30/2025, 14:54. FINDINGS: Image quality: Excellent. CHEST: Lower Neck: No enlarged lymph nodes. Thyroid: No thyroid nodules which require sonographic follow up, per consensus guidelines. Axillae: No enlarged lymph nodes. Chest Wall: Unremarkable. Lungs and Pleura: No pneumothorax or pleural effusions. 4 mm left upper lobe nodule is again seen series 3 image 104 stable. No new suspicious pulmonary nodules are seen. Scattered scarring/atelectasis are noted scattered in bilateral mid to lower lung zone. No acute consolidations. Heart: Heart size is enlarged. No pericardial effusion. Dense atherosclerotic calcifications are noted in coronary arteries. Thoracic Vessels: Mild ascending thoracic aortic aneurysm measures up to 4.3 cm in largest AP diameter. The pulmonary arteries are normal in size. Mediastinum and Allison: No enlarged lymph nodes. Esophagus: No wall thickening. No hiatal hernia. ABDOMEN: Liver: No solid mass. Well-circumscribed hypodensities are seen scattered throughout liver parenchyma likely represent hepatic cysts unchanged in size and distribution compared to previous study. Gallbladder: No radiopaque gallstones or wall thickening. Biliary ducts: No biliary dilation. Pancreas: No ductal dilation. Spleen: Size is within normal limits. Adrenal Glands: No adrenal nodules. Kidneys and Ureters: N there is prior left nephrectomy. No abnormality is seen in left renal fossa. Nonobstructing stones are noted in right kidney measures up to 3 mm in size in lower pole right kidney. Multiple exophytic right renal cysts are again seen. 2.1 x 1.8 cm hyperdense exophytic structure in again seen in posterior lateral right renal cortex unchanged in size and appearance compared to previous study and may represent hyperdense cyst or hemorrhagic cyst. No definite solid appearing right renal lesion is noted. No right-sided hydronephrosis or hydroureter. Stomach and Bowel: There is no bowel obstruction. No abnormal bowel wall thickening or mesenteric fat stranding. [id number] fecal stasis in the colon is seen. No abscess collection. Sigmoid diverticulosis without CT evidence of acute diverticulitis. Peritoneum: No abnormal intraperitoneal fluid. No free air. Ventral Wall: No significant ventral hernia. Abdominal Nodes: No retroperitoneal or mesenteric adenopathy by size criteria. Vessels: Aorta and inferior vena cava are normal in size. PELVIS: Pelvic Organs: Unremarkable. Bladder: No bladder wall thickening, accounting for underdistention. Pelvic Nodes: No enlarged lymph nodes. Miscellaneous: No inguinal hernias are seen. Bones: No aggressive appearing bony lesions. Severe bilateral glenohumeral joint osteoarthritic changes are again seen. Scoliosis of thoracolumbar spine with moderate degenerative disc disease throughout thoracic and lumbar spine. No acute compression fracture or spondylolisthesis. Moderate bilateral hip joint osteoarthritic changes are seen. IMPRESSION: 1. Prior left nephrectomy. No evidence of local recurrence. Stable exophytic right renal cysts including possible hemorrhagic cyst or hyperdense cyst as above. No suspicious right renal lesion or hydronephrosis. 2. Stable left upper lobe 4 mm nodule likely suggestive of benign nodule. No suspicious pulmonary nodules are seen. 3. Stable ectasias of ascending thoracic aorta with moderate to severe atherosclerotic disease. No abdominal aortic aneurysm. 4. Other chronic findings are all unchanged from prior studies. Dictated by: Humberto Garcia M.D. on 07/26/2025 at 10:51 Approved by: Humberto Garcia M.D. on 07/26/2025 at 11:02
== END ==
LOC: CT 06:29
PROVIDERS: PCP Internal Medicine; Referring Provider Internal Medicine Hematology & Oncology; Visit Provider Internal Medicine Hematology & Oncology
DX: R22.42 Localized swelling, mass and lump, left lower limb (principal); N28.1 Cyst of kidney, acquired; R91.1 Solitary pulmonary nodule; I71.22 Aneurysm of the aortic arch, without rupture; I25.10 Atherosclerotic heart disease of native coronary artery without angina pectoris; I51.7 Cardiomegaly; Z90.5 Acquired absence of kidney
CPT/HCPCS: 71260; 74177; Q9967